=== PATIENT | female | born 1960 | race Caucasian/White ===

== ENCOUNTER 2019-12-21 11:49 | Emergency (ER) | payer OTHER, SELFPAY ==
--- NOTE | ~2019-12-21 | CT_ITS ---
EXAMINATION: CT brain wo con EXAM DATE: 12/21/2019 14:00 INDICATION: Unsteady gait. Sinus infection. TECHNIQUE: Spiral CT of the head was performed without contrast. Axial, coronal and sagittal images were reviewed. The dose-length product (DLP) for this examination was 605.33 mGy-cm. The exposure w as tailored according to patient size, and iterative reconstruction (ASIR) was used as additional dos e reduction technique. There is no prior study for comparison. FINDINGS: There is no acute intraparenchymal hemorrhage. No evidence of intraparenchymal brain mass lesion. No evidence of acute infarction. There is no mass effect or midline shift. The ventricles are normal in size. There are no extra-axial collections. There are no acute calvarial fractures. T he orbits are unremarkable. Soft tissue is unremarkable. Trace bilateral maxillary sinus fluid, mild bilateral ethmoid mucoperiosteal thickening. IMPRESSION: 1. No acute intracranial findings. Reviewed, dictated and finalized at location A. 'S CARPENTER
--- NOTE | ~2019-12-21 | XR_ITS ---
EXAMINATION: XR chest 1V DATE: 12/21/2019 14:02 INDICATION: Numb lips. TECHNIQUE: A single frontal view of the chest was obtained. COMPARISON: None. FINDINGS: The chest demonstrates clear lungs without pneumonia, pleural effusion, or pneumothorax. Th e heart size is normal. There is a moderate-sized hiatal hernia. IMPRESSION: 1. Moderate-sized hiatal hernia. Reviewed, dictated and finalized at location A. WORKER
[2019-12-21 11:59] VITALS: BP 182/98; PULSE 120; RESP 20; TEMP 36.3; O2SAT 99
--- NOTE | 2019-12-21 13:37 | ECG_ITS ---
Measurements Intervals [place] Rate: 81 P: 55 AL: 156 QRS: 62 QRSD: 84 T: 42 QT: 376 QTc: 437 Interpretive Statements SINUS RHYTHM BORDERLINE ST ABNORMALITY- INFERIOR LEADS BASELINE WANDER- II, III, AVF BORDERLINE ECG Electronically Signed On 12-21-2019 15:45:16 COW BUYER by Enoc Reynoso D.O.
[2019-12-21 15:00] VITALS: BP 137/88; PULSE 89; RESP 14; O2SAT 99
[2019-12-21 15:13] VITALS: BP 137/88; PULSE 89; RESP 14; O2SAT 99
--- NOTE | 2019-12-21 15:26 | ED.ANXIETY ---
HPI - Anxiety General Chief Complaint: Anxiety Stated Complaint: Lips numb,feels odd Time Seen by Provider: 12/21/19 15:24 Source: patient Mode of arrival: ambulatory Limitations: no limitations History of Present Illness HPI narrative: The pt is a 59 y/o female who presents to the ED c/o anxiety onset today. Pt states that she has been dealing with lots of stress recently due to family issues, and notes that she had a very upsetting phone call today related to this. She states that during this phone call, she began to notice her lips were tingling and that she felt very jumpy. She also notes that she also has not taken her HTN and hypothyroid medication for the last three days, and states that she feels better after taking her HTN medication in the ER. Pt reports that she has had a sinus infection and has been taking Augmentin. Pt reports cough, nasal congestion, and resolved fever associated with this infection. She denies CP, dizziness, and palpitations. MD complaint: anxiety Symptoms: perioral numbness/tingling and other (feeling jumpy ) Place: home Provoking factors: emotional stress Relieving factors: medication (HTN) Associated symptoms: fever/chills (Resolved, associated with sinus infection) and other (Cough (Associated with sinus infection), Nasal congestion (Associated with sinus infection)) Related Data Allergies Allergy/AdvReac Type Severity Reaction Status Date / Time oak Allergy Unknown Verified 08/11/18 10:31 prochlorperazine Allergy Unknown Verified 08/11/18 10:31 Sulfa (Sulfonamide Allergy Unknown Verified 08/11/18 10:31 Antibiotics) Review of Systems Review of Systems: All systems reviewed & are unremarkable except as noted in HPI and below Constitutional: Constitutional: Reports fever(s) (Resolved, Associated with sinus infection) and Reports other (Feeling jumpy ) ENT: Reports nasal congestion (Associated with sinus infection) Cardiovascular: Cardiovascular: Denies chest pain and Denies palpitations Respiratory: Respiratory: Reports cough (Associated with sinus infection) Neurologic: Denies dizziness and Reports tingling (Around the mouth) Psychiatric: Psychiatric: Reports anxiety PMFSH Past Medical History Medical History (Updated 12/21/19 @ 17:09 by Christopher Clifton MD) Deviated septum Fracture of right lower leg HTN (hypertension) Neck injury Tension headache Thyroid disease Unspecified Surgical History Surgical History (Updated 12/21/19 @ 15:39 by Julián Rodrigues) H/O hand surgery x2 H/O sinus surgery Sinus lift Social History Social History (Updated 12/21/19 @ 15:39 by Julián Rodrigues) Smoking status: Never smoker Gender identity (if verbalized by the patient): Female Comments PCP: Joanna Zuleta PA-C Exam Const: General: cooperative, healthy appearing, comfortable, no acute distress, well developed, alert and awake; No confusion Orientation/consciousness: oriented to person, oriented to place, oriented to time, patient oriented x3 and No confusion Limitations: no limitations Resp: Effort & Inspection: normal respiratory effort, able to speak in complete sentences, no respiratory distress and not tachypneic Auscultation: clear to auscultation bilaterally, no crackles, no rales, no rhonchi and no wheezes Cardio: Rate: regular rate Rhythm: regular rhythm GI: Inspection: normal to inspection GI Palp: No abdominal tenderness, Yes Soft to palpation, No Tenderness to palpation present (GI), No Guarding due to palpation present (GI), No Rigid due to palpation and No Rebound tenderness present Auscultation: normal bowel sounds Skin: General skin exam: normal color, no rashes or lesions noted, elasticity normal and turgor normal Neuro: General: oriented to person, oriented to place, oriented to time, patient oriented x3, tone normal, moves all extremities and no focal motor deficits Speech: No Abnormal speech present Extrem: General: normal to inspection,
[2019-12-21 15:31] LABS: Basophils Percent Auto 0.4 % (0.2-1.2); Eosinophils Percent Auto 0.2 % (0-4.4); Hematocrit 45.4 % (37.0-47.0); Hemoglobin 15.2 g/dL (12.0-15.0); Immature Granulocyte Absolute 0.01 K/mm3 (0.00-0.031); Immature Granulocyte Percent A 0.2 % (0-0.5); Lymphocytes Absolute Auto 3.28 K/mm3 (0.9-3.2); Lymphocytes Percent Auto 64.8 % (18.3-44.2); Mean Corpuscular HGB Conc 33.5 g/dl (32-36); Mean Corpuscular Volume 92.7 fl (80-100); Mean Platelet Volume 8.7 fl (7.4-10.4); Monocytes Absolute Auto 0.4 K/mm3 (0.1-0.6); Monocytes Percent Auto 7.9 % (2.6-8.5); Neutrophils Absolute Auto 1.3 K/mm3 (1.3-6.7); Neutrophils Percent Auto 26.5 % (45.5-73.1); Platelet Count Result 174 k/mm3 (150-375); Red Cell Distribution Width 12.4 % (11.5-14.5); White Blood Count 5.1 K/mm3 (4.5-10.0)
[2019-12-21 15:41] LABS: Prothrombin Time 12.7 Seconds (11.1-14.7)
[2019-12-21 15:43] LABS: Blood Urea Nitrogen 12 mg/dL (7-17); Calcium 8.4 mg/dL (8.4-10.2); Carbon Dioxide 25 mmol/L (22-30); Chloride 103 mmol/L (98-107); Estimated CRCL calculation 63 ml/min; Estimated Glomerular Filt Rate > 60; Glucose 124 mg/dL (65-105); Potassium 3.5 mmol/L (3.4-5.0); Sodium 142 mmol/L (137-145)
[2019-12-21 15:56] LABS: Troponin I < 0.012 ng/mL (0.000-0.034)
[2019-12-21 17:25] VITALS: BP 134/77; PULSE 83; O2SAT 98
== END 2019-12-21 17:27 | disposition home or self-care (01) ==
PROVIDERS: Emergency Medicine; Emergency Provider Emergency Medicine; PCP Physician Assistant
DX: F41.9 Anxiety disorder, unspecified (principal); I10 Essential (primary) hypertension; E07.9 Disorder of thyroid, unspecified; K44.9 Diaphragmatic hernia without obstruction or gangrene; R94.31 Abnormal electrocardiogram [ECG] [EKG]
CPT/HCPCS: 36415; 70450; 71045; 80048; 84484; 85025; 85610; 85730; 93005; 99284

== ENCOUNTER 2021-12-31 22:17 | Emergency (ER) | payer BC, SELFPAY ==
--- NOTE | ~2021-12-31 | XR_ITS ---
XR toe 1st RT min 2V 12/31/2021 22:39 Indication: Right first toe pain Procedure: 3 views right first toe Comparison: No prior studies for comparison. Findings: There is a displaced avulsion fracture dorsal base right first distal phalanx with subluxat ion of the distal phalanx. Moderate soft tissue swelling. There is a small surgical cerclage wire ove rlying the proximal phalanx. Impression: 1: Displaced avulsion fracture dorsal base right first distal phalanx with plantar subluxation. Reviewed, dictated and finalized at location A. [facility] Impression: 1: Displaced avulsion fracture dorsal base right first distal phalanx with plan tar subluxation.
[2021-12-31 22:20] VITALS: BP 165/113; PULSE 106; RESP 20; TEMP 37; O2SAT 99
--- NOTE | 2021-12-31 22:37 | ED.LOWEXIN ---
HPI - Extremity Injury (Lower) General Chief Complaint: Extremity Injury, Lower Stated Complaint: right great toe pain Time Seen by Provider: 12/31/21 22:27 History of Present Illness HPI Narrative: 61-year-old female presents to the emergency room with complaints of right great toe pain. Patient states that she tripped caught her toe in her clothing. Patient states that she felt a pop and then a snap. Looked down at her injury and noticed that the bone in her right great toe was sticking out of the skin. Related Data Allergies Allergy/AdvReac Type Severity Reaction Status Date / Time oak Allergy Unknown Verified 08/11/18 10:31 prochlorperazine Allergy Unknown Verified 08/11/18 10:31 Sulfa (Sulfonamide Allergy Unknown Verified 08/11/18 10:31 Antibiotics) Review of Systems Review of Systems: CONSTITUTIONAL: Denies fever, chills, or sweats. EYES: Denies visual changes, redness, or discharge. ENT: Denies rhinorrhea, congestion, sore throat, or otalgia. CARDIOVASCULAR: Denies chest pain, palpitations, or edema. RESPIRATORY: Denies cough or dyspnea. GASTROINTESTINAL: Denies abdominal pain, nausea, vomiting, or diarrhea. GENITOURINARY: Denies dysuria or hematuria. SKIN: Denies rash or itching. MUSCULOSKELETAL: Denies back pain, joint pain, or myalgia. Right great toe pain NEUROLOGIC: Denies headache, numbness, dizziness, or weakness. PSYCHIATRIC: Denies anxiety or depression. [facility] Past Medical History Medical History Deviated septum Fracture of right lower leg HTN (hypertension) Neck injury Tension headache Thyroid disease Unspecified Surgical History Surgical History H/O hand surgery x2 H/O sinus surgery Sinus lift Social History Social History Smoking status: Never smoker Gender identity (if verbalized by the patient): Female Exam Narrative: GENERAL: Well-appearing, well-nourished, and in no acute distress. HEAD: Normocephalic, atraumatic. EYES: PERRLA and EOMI. ENT: Nares clear, no rhinorrhea or epistaxis. Mucous membranes moist. Oropharynx without tonsillar hypertrophy exudate or other lesions. Bilateral TMs [place] nonbulging NECK: Supple. No adenopathy or masses. No carotid bruits or JVD CHEST: Clear to auscultation. No respiratory distress. No wheezes rales or rhonchi HEART: Regular rate and rhythm. No murmur heard. Normal peripheral pulses. ABDOMEN: Soft, nontender, nondistended, normal active bowel sounds. EXTREMITIES: right great toe: Open fracture involving the proximal phalanx; neurovascular distally intact; cap refill less than 2 seconds SKIN: Warm, dry, no rash. NEURO: No focal deficits. Alert and oriented x3. PSYCH: Normal mood and affect. Course Course Emergency Course: 2349: Report given to Dr. Camacho at [facility]. She is excepting physician. Vital Signs Vital signs: Vital Signs Temperature 37.0 C 12/31/21 22:20 Pulse Rate 106 H 12/31/21 22:20 Respiratory Rate 20 12/31/21 22:20 Blood Pressure 165/113 H 12/31/21 22:20 Pulse Oximetry 99 12/31/21 22:20 Temperature 37.0 C 12/31/21 22:20 Pulse Rate 106 H 12/31/21 22:20 Respiratory Rate 20 12/31/21 22:20 Blood Pressure 165/113 H 12/31/21 22:20 Pulse Oximetry 99 12/31/21 22:20 MDM - Extremity Injury (Lower) MDM Narrative Medical decision making narrative: 61-year-old female presenting with an injury to her right great toe. Imaging shows a displaced avulsion fracture to the dorsal base of the right first distal phalanx plantar subluxation. Ancef given. 4 mg of Zofran 4 mg of morphine for pain. Toe was dressed with a wet-to-dry gauze. Dr. Camacho [facility] will be the accepting physician. Transfer by ALS was initiated. Imaging Data Radiologist's impression: Impressions Toe X-Ray 12/31/21 22:55 Impression: 1: Displaced avulsion fr
[2021-12-31] MEDS: SODIUM CHLORIDE 0.9% IV 1,000 ML 150 ML IV CONT (22:42)
[2021-12-31] MEDS: ONDANSETRON INJ 4 MG/2 ML VIAL IV PUSH (22:45)
[2021-12-31 22:46] LABS: Basophils Absolute Auto 0.1 K/mm3 (0.0-0.1); Basophils Percent Auto 0.4 % (0.2-1.2); Eosinophils Absolute Auto 0.2 K/mm3 (0-0.3); Eosinophils Percent Auto 0.7 % (0-4.4); Hematocrit 45.1 % (37.0-47.0); Hemoglobin 15.2 g/dL (12.0-15.0); Immature Granulocyte Absolute 0.03 K/mm3 (0.00-0.031); Immature Granulocyte Percent A 0.1 % (0-0.5); Lymphocytes Absolute Auto 13.63 K/mm3 (0.9-3.2); Lymphocytes Percent Auto 48.7 % (18.3-44.2); Mean Corpuscular HGB Conc 33.7 g/dl (32-36); Mean Corpuscular Hemoglobin 31.5 pg (26-34); Mean Corpuscular Volume 93.4 fl (80-100); Mean Platelet Volume 8.6 fl (7.4-10.4); Monocytes Absolute Auto 10.9 K/mm3 (0.1-0.6); Monocytes Percent Auto 39.1 % (2.6-8.5); Neutrophils Absolute Auto 3.1 K/mm3 (1.3-6.7); Platelet Count Result 216 k/mm3 (150-375); Red Blood Count 4.83 M/mm3 (4.2-5.4); Red Cell Distribution Width 13.2 % (11.5-14.5)
[2021-12-31] MEDS: MORPHINE SULFATE (*CRX) 4 MG/ML INJ IV PUSH (22:48)
[2021-12-31] MEDS: ceFAZolin SODIUM 1 GM VIAL IV PUSH (22:49)
[2021-12-31] MEDS: TETANUS,DIPHTHERIA,AC PERTUSSIS ADULT (0.5 ML) BOOSTRIX IM (22:55)
[2021-12-31 22:58] LABS: Alanine Aminotransferase 27 U/L (4-35); Albumin Level 4.9 g/dL (3.5-5.1); Alkaline Phosphatase 95 U/L (38-126); Anion Gap 8 mmol/L (8-16); Aspartate Amino Transferase 42 U/L (14-36); Bilirubin,Total 0.6 mg/dL (0.2-1.3); Blood Urea Nitrogen 12 mg/dL (7-17); Calcium 9.4 mg/dL (8.4-10.2); Carbon Dioxide 26 mmol/L (22-30); Chloride 106 mmol/L (98-107); Estimated CRCL calculation 55 ml/min; Estimated Glomerular Filt Rate > 60; Glucose 108 mg/dL (65-110); Potassium 4.1 mmol/L (3.4-5.0); Sodium 140 mmol/L (137-145)
--- NOTE | 2021-12-31 22:59 | PC.NURSE ---
wet/dry dressing right great toe
[2021-12-31 23:44] VITALS: BP 182/109; PULSE 92; RESP 18; O2SAT 100
[2021-12-31 23:51] LABS: SARS-CoV-2 RNA PCR Negative
--- NOTE | 2022-01-01 00:13 | PC.NURSE ---
report to brigido lee at [facility] ed [id number]
[2022-01-01] MEDS: MORPHINE SULFATE (*CRX) 4 MG/ML INJ IV PUSH (00:49)
[2022-01-01 00:54] VITALS: BP 175/98; PULSE 83; RESP 18; O2SAT 100
[2022-01-01 00:55] VITALS: BP 175/98; PULSE 83; RESP 18; O2SAT 100
== END 2022-01-01 00:59 | disposition short-term general hospital (02) ==
PROVIDERS: Emergency Provider Nurse Practitioner Family; PCP Physician Assistant
DX: S92.421B Displaced fracture of distal phalanx of right great toe, initial encounter for open fracture (principal); Z23 Encounter for immunization; Z20.822 Contact with and (suspected) exposure to COVID-19; I10 Essential (primary) hypertension; E07.9 Disorder of thyroid, unspecified; W01.0XXA Fall on same level from slipping, tripping and stumbling without subsequent striking against object, initial encounter
CPT/HCPCS: 36415; 73660; 80053; 85025; 90471; 90715; 96361; 96374; 96375; 96376; 99285; C9803; J0690; J2270; J2405; J7030; U0003; U0005

== ENCOUNTER → 2023-10-26 11:36 | Outpatient (CLI) | payer OTHER, SELFPAY ==
--- NOTE | ~2023-10-26 | XR_ITS ---
EXAMINATION: XR thoracic spine 2V DATE: 10/26/2023 12:17 INDICATION: Neck and upper back pain. TECHNIQUE: 3 views of thoracic spine were obtained. COMPARISON: None. FINDINGS: There is 7 degrees levocurvature of thoracic spine. Vertebral body heights are normal. Ther e is mildly decreased disc height at multiple levels in mid and lower thoracic spine. There are endpl ate osteophytes at most levels. IMPRESSION: 1. Mild thoracic spondylosis. Reviewed, dictated and finalized at location E. URE BOOKER
--- NOTE | ~2023-10-26 | XR_ITS ---
EXAMINATION: XR_CERV2-3V_CR DATE: 10/26/2023 12:16 INDICATION: Neck and upper back pain. TECHNIQUE: 3 views of cervical spine were obtained. COMPARISON: None. FINDINGS: There is kyphosis of cervical spine. There is 2 mm retrolisthesis of C4 on C5 and C5 on C6. Vertebral body heights are normal. There is moderately decreased disc height at C3-C4, severely decr eased disc height at C4-C5, moderately decreased disc height at C5-C6, and severely decreased disc he ight at C6-C7. There is multilevel uncovertebral joint osteoarthritis, severe on the right at C3-C4 a nd C4-C5 and bilaterally at C6-C7. There is multilevel facet joint osteoarthritis, moderate on the le ft at C3-C4. There is mild central canal stenosis at C3-C4, C4-C5, C5-C6, and C6-C7. No prevertebral soft tissue swelling. IMPRESSION: 1. Severe cervical spondylosis. Reviewed, dictated and finalized at location E. EMS AUDITOR
--- NOTE | ~2023-10-26 | XR_ITS ---
XR lumbar spine 2-3V 10/26/2023 12:17 Indication: Back pain Procedure: 3 views lumbar spine Comparison: No prior studies for comparison. Findings: There is disc narrowing at L2-3 and L3-4. There is grade 1 degenerative spondylolisthesis a t L2-3. There is facet hypertrophy at L4-5 and L5-S1. No fracture or traumatic malalignment. There ar e surgical clips overlying the lumbar spine on the AP view. Sacral foramen are symmetric. Impression: 1: Moderate lumbar spondylosis. Reviewed, dictated and finalized at location B. ORT ADVISOR Impression: 1: Moderate lumbar spondylosis.
== END ==
DX: M47.894 Other spondylosis, thoracic region (principal); M47.892 Other spondylosis, cervical region; M47.896 Other spondylosis, lumbar region
CPT/HCPCS: 72040; 72070; 72100

== ENCOUNTER 2025-06-02 08:59 | Emergency (ER) | payer MEDICARE, SELFPAY ==
--- NOTE | 2025-06-02 | CONSULT_PTH ---
PATIENT: Diane Owens LOC: [facility]#:[id number] AGE/SX: 64/F ROOM: RE06/02/[address]: Martínez Allen MD : 1960 BED: DIS: 06/02/2025 SPEC #: [id number] RECD: 06/02/25 10:09 STATUS: CATA REQ #: [id number] MARYJO: 06/02/25 00:[address]: Martínez Allen DEPT: [facility] Consult RECD BY: Joanna Valentin MLT ENTERED: 06/02/25 10:10 SP TYPE: Consult OT DR: PHYSICIAN NOT ON STAFF Tissues: A - Peripheral Smear Procedures: Hematology Consult
--- NOTE | ~2025-06-02 | CT_ITS ---
EXAMINATION: CT abdomen pelvis wo con DATE: 06/02/2025 10:34 INDICATION: Left flank pain and hematuria TECHNIQUE: Computed tomography (CT) of the abdomen and pelvis was performed without intravenous contr ast. Automated exposure control and iterative reconstruction technique were employed. The dose-length product was 402.80 mGy-cm. COMPARISON: None FINDINGS: Mild dependent atelectasis in bilateral lower lobes. Heart size is normal. Atherosclerotic coronary a rtery calcific location. No pericardial or pleural effusion. Mild to moderate sized sliding type hiat al hernia. 1.8 cm hepatic cyst. Splenomegaly measuring 13.4 cm craniocaudal length. Gallbladder, panc reas and bilateral adrenal glands are normal. Kidneys and ureters are normal with no urolithiasis, hy droureteronephrosis or perinephric/ureteral stranding. Mild sigmoid predominant diverticulosis withou t adjacent from trace stranding to suggest diverticular colitis. Small bowel and appendix are normal. Bladder, uterus and bilateral adnexa are unremarkable. No free intraperitoneal gas or fluid. No path ologically enlarged abdominal or pelvic lymphadenopathy. Small fat-containing left inguinal hernia. M ultiple surgical clips extending craniocaudally along the midline anterior abdominal wall. Mild lumba r and lower thoracic spondylosis. IMPRESSION: 1. No urolithiasis or acute intra-abdominal/pelvic process. 2. Small to moderate-sized sliding-type hiatal hernia. 3. Small fat-containing left inguinal hernia. Reviewed, dictated and finalized at location A.
--- OUTSIDE RECORDS SUMMARY | 2025-06-02 09:02 | XMS_ITS | Referral Summary ---
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 or = 19 years Acceptable: <170 mg/dL Borderline high: 170-199 mg/dL High: >or= 200 mg/dL Ages > or = 20 years Desirable: <200 mg/dL Borderline high: 200-239 mg/dL High: >or= 240 mg/dL Literature References: 1. Expert Panel on Integrated Guidelines for Cardiovascular Health and Risk Reduction in Children and Adolescents. Pediatrics 2011;128:S213 2. NCEP Expert Panel. Circulation 2004;110:227 Current Interpretive Data was last revised on 2018. Triglycerides 110 <=149 mg/dL [facility] Comment: Interpretive Data Ages < or = 9 years Acceptable: <75 mg/dL Borderline high: 75-99 mg/dL High: >or= 100 mg/dL Ages 10 to 20 years Acceptable: <90 mg/dL Borderline high: 90-129 mg/dL High: >or= 130 mg/dL Ages > or = 20 years Desirable: <150 mg/dL Borderline high: 150-199 mg/dL High: 200-499 mg/dL Very high: >or= 499 mg/dL Literature References: 1. Expert Panel on Integrated Guidelines for Cardiovascular Health and Risk Reduction in Children and Adolescents. Pediatrics 2011;128:S213 2. NCEP Expert Panel. Circulation 2004;110:227 Current Interpretive Data was last revised on 2018. HDL 38(L) >=40 mg/dL [facility] Comment: Interpretive Data Ages < or = 19 years Acceptable: >45 mg/dL Borderline low: 40-45 mg/dL Low: <40 mg/dL Ages > or = 20 years Desirable: >or= 60 mg/dL Low: <40 mg/dL Literature References: 1. Expert Panel on Integrated Guidelines for Cardiovascular Health and Risk Reduction in Children and Adolescents. Pediatrics 2011;128:S213 2. NCEP Expert Panel. Circulation 2004;110:227 Current Interpretive Data was last revised on 2018. LDL, calculated 194(H) <=129 mg/dL [facility] Comment: Interpretive Data Ages < or = 19 years Acceptable: <110 mg/dL Borderline high: 110-129 mg/dL High: >or= 130 mg/dL Ages > or = 20 years Optimal: <100 mg/dL Near optimal: 100-129 mg/dL Borderline high: 130-159 mg/dL High: >160 mg/dL Calculated using the Julien LDL-C estimating equation. This equation was implemented on 2024. Prior to this date LDL-C was estimated using the Friedewald equation. Literature References: 1. Expert Panel on Integrated Guidelines for Cardiovascular Health and Risk Reduction in Children and Adolescents. Pediatrics 2011;128:S213 2. NCEP Expert Panel. Circulation 2004;110:227 3. Julien Burgess et al. MARIELA Cardiol. 2019February 28;5(5):540-548. doi: 10.1001/[email or web address] Current Interpretive Data was last revised on 2024. Non-HDL Cholesterol 214 mg/dL [facility] Comment: Interpretive Data Ages < or = 19 years Acceptable: <120 mg/dL Borderline high: 120-144 mg/dL High: >145 mg/dL Ages > or = 20 years When triglycerides are >200 mg/dL, Non-HDL cholesterol is a secondary target of therapy with treatment goals that are 30 mg/dL greater than the LDL cholesterol target. Literature References: 1. Expert Panel on Integrated Guidelines for Cardiovascular Health and Risk Reduction in Children and Adolescents. Pediatrics 2011;128:S213 2. NCEP Expert Panel. Circulation 2004;110:227 Current Interpretive Data was last revised on 2018. Chol/HDL ratio 7 [facility] Blood 03/21/2025 9:57 AM CDT 03/21/2025 3:45 PM CDT us Jesus Henao MD LAB BLOOD ORDERABLES Final R esult [facility] [address] [place] [address] * COLONOSCOPY (12/19/2020 11:09 AM REMOTE SENSING SPECIALIST) Anatomical Region Laterality Modality Other Narrative Procedure Note Valeria Hendricks MD - 12/19/2020 11:09 AM CST [facility] Endoscopy Lab Patient Name: Diane Owens Procedure Date: 12/19/2020 11:09 AM Date of : 1960 Admit Type: Outpatient Age: 60 Gender: Female Attending MD: Valeria Hendricks M.D. Procedure: Colonoscopy Indications: Screening for colorectal malignant neoplasm, Thisis the patient's first colonoscopy, Incidental - Hematochezia Providers: Valeria Hendricks M.D. Referring MD: Joanna Zuleta P.ACarla Medicines: Monitored Anesthesia Care Complications: No immediate complications. Procedure: Pre-Anesthesia Assessment: - Prior to the procedure, a History and Physicalwas performed, and patient medications and allergieswere reviewed. The patient is competent. The risks and benefits of the procedure and the sedation optionsand risks were discussed with the patient. Allquestions were answered and informed consent was obtained. Patient identification and proposed procedure were verified by the physician, the nurse, the anesthesiologist, the paramedic rn and thetechnician in the pre-procedure area in the procedure room inthe endoscopy suite. Mental Status Examination: alertand oriented. Airway Examination: normal oropharyngeal airway and neck mobility. Respiratory Examination: clear to auscultation. CV Examination: normal.After reviewing the risks and benefits, the patient was deemed in satisfactory condition to undergo the procedure. The anesthesia plan was to use monitored anesthesia care (MAC). Immediately prior to administration of medications, the patient was re-assessed for adequacy to receive sedatives. The heart rate, respiratory rate, oxygen saturations, blood pressure, adequacy of pulmonary ventilation,and response to care were monitored throughout the procedure. The physical status of the patient was re-assessed after the procedure. - The risks and benefits of the procedure and the sedation options and risks were discussed with the patient. All questions were answered and informed consent was obtained. The benefits, risks and alternatives of theprocedure and sedation were discussed and informed consentwas obtained. All questions were answered. Please referto the signed informed consent document in the medical record. The scope was passed under direct vision.The Colonoscope was introduced through the anus and advanced to the the terminal ileum, with identification of the appendiceal orifice and IC valve. The colonoscopy was performed without difficulty. The patient tolerated the procedurewell. The quality of the bowel preparation was evaluated using the BBPS ([place] Bowel Preparation Scale)with scores of: Right Colon = 3, Transverse Colon = 3and Left Colon = 3 (entire mucosa seen well with no residual staining, small fragments of stool oropaque liquid). The total BBPS score equals 9. The qualityof the bowel preparation was good. The quality of the bowel preparation was evaluated using the BBPS([place] Bowel Preparation Scale) with scores of: RightColon = 3 (entire mucosa seen well with no residualstaining, small fragments of stool or opaque liquid),Transverse Colon = 3 (entire mucosa seen well with no residual staining, small fragments of stool or opaqueliquid) and Left Colon = 3 (entire mucosa seen well with no residual staining, small fragments of stool oropaque liquid). The total BBPS score equals 8. The qualityof the bowel preparation was good. The bowelpreparation used was polyethylene glycol (PEG) via split dose instruction. Bowel prep was administered using asplit dose. Findings: The perianal exam findings include non-thrombosed externalhemorrhoids. Scattered small and large-mouthed diverticula were found in thesigmoid colon and descending colon. [Bleeding]. A 8 mm polyp was found in the cecum. The polyp was sessile. The polyp was removed with a hot snare. Resection and retrieval were complete.To close a defect after polypectomy, two hemostatic clips weresuccessfully placed. There was no bleeding at the end of the procedure. A 10 mm polyp was found in the sigmoid colon. The polyp was sessile.The polyp was removed with a hot snare. Resection and retrieval were complete. A 2 mm polyp was found in the sigmoid colon. The polyp was sessile.The polyp was removed with a cold biopsy forceps. Resection and retrieval were complete. The exam was otherwise normal throughout the examined colon. The terminal ileum appeared normal. Impression: - Non-thrombosed external hemorrhoids found on perianal exam. - Diverticulosis in the sigmoid colon and in the descending colon. There was no evidence of diverticular bleeding. - One 8 mm polyp in the cecum, removed with a hot snare. Resected and retrieved. Clips were placed. - One 10 mm polyp in the sigmoid colon, removedwith a hot snare. Resected and retrieved. - One 2 mm polyp in the sigmoid colon, removed witha cold biopsy forceps. Resected and retrieved (two sigmoid colon polyps in 1 jar). - The examined portion of the ileum was normal. Recommendation: - Await pathology results. - High fiber diet. - No ibuprofen, naproxen, or other non-steroidal anti-inflammatory drugs for 1 week after polypremoval. - Repeat colonoscopy in 3 years for surveillancebased on pathology results. Signed electronically by Dr. Hendricks Valeria Hendricks M.D. 12/19/2020 12:38:00 PM This report has been signed electronically. Number of Addenda: 0 Note Initiated On: 12/19/2020 11:09 AM Scope Withdrawal Time: 0 hours 18 minutes 27 seconds Estimated Blood Loss: Estimated blood loss: none. us Valeria Hendricks MD ENDOSCOPY PROCEDURES Final Resul t from Last 3 Months or Most Recently Relevant to Health Maintenance Additional Health Concerns Infection Onset Date Last Indicated MDR gram neg/ESBL 05/08/2021 05/08/2021 Insurance Propers [facility] MEDICARE [facility] MEDICARE Advance Directives For more information, please contact: [phone] * Full Code (Latest Code Status on File) Date Activated Date Inactivated Comments 04/27/2021 10:31 AM 04/27/2021 4:10 PM * Full Code Date Activated Date Inactivated Comments 02/19/2021 8:06 AM 02/19/2021 2:08 PM * Full Code Date Activated Date Inactivated Comments 12/19/2020 10:54 AM 12/19/2020 5:41 PM Care Teams Textile Engineer Relationship Specialty Start Date End Date Jesus Henao MD [address] [address] PCP - General Internal Medicine 03/21/25 Henrik Silverio DO [address] [place] [id number] Medical Oncologist/Seo Engineer Hematology and Oncology 12/12/20
--- OUTSIDE RECORDS SUMMARY | 2025-06-02 09:02 | XMS_ITS | Clinical Summary ---
Author Organization [facility] Address [address] [place] [address] Care Team Providers Care Technical Operator Name Role Phone Unavailable Primary Care Provider Unavailabl e Allergies Active Allergy Reactions Criticality Noted Date Comments Cat Dander Other (See Comments) 01/22/2024 Hydrochlorothiazide Rash Low 05/26/2023 Latex Itching Medium 05/19/2020 Niacin Itching,Rash Medium 05/19/2020 Prochlorperazine Anxiety Low 02/02/2011 anxious Sulfa (Sulfonamide Antibiotics) Itching Low 02/2011 Medications estradioL (ESTRACE) 0.01% (0.1 mg/g) vaginal cream APPLY PEAS SIZED (0.25 G) AMOUNT TO THE VAGINAL OPENING NIGHTLY X3 WEEKS, THEN 2-3 TIMES PER WEEK. 05/08/2021 Active levothyroxine 50 mcg tablet Take 50 mcg by mouth daily before breakfast. 10/10/2020 Active losartan (COZAAR) 25 mg tablet Take 2 Tablets by mouth daily. 08/18/2020 Active fluconazole (DIFLUCAN) 150 mg tablet Take 1 Tablet (150 mg) by mouth daily. 3 Tablet 03/12/2024 Active Active Problems Problem Noted Date Diagnosed Date SANDRITA III (cervical intraepithelial neoplasia III) 06/25/2022 Benign essential hypertension 02/24/2022 Anxiety 02/24/2022 Hiatal hernia with gastroesophageal reflux 02/24 Vitamin D deficiency 06/16/2021 Overview (01/22/2024): Last Assessment & Plan: Continue weekly vitamin D supplementation unless repeat testing is above ULN. Feels much better, less fatigued since taking it. Last Assessment & Plan: Continue weekly vitamin D supplementation unless repeat testing is above ULN. Feels much better, less fatigued since taking it. Gastroesophageal reflux disease with esophagitis 02/09/2021 Overview (01/22/2024): Added automatically from request for surgery [id number] Added automatically from request for surgery [id number] Chronic sinusitis 01/29/2021 Overview (01/22/2024): Last Assessment & Plan: Patient has chronic sinusitis Has had scope previously Would like to get second opinion on treatment options Will place referral Last Assessment & Plan: Patient has chronic sinusitis Has had scope previously Would like to get second opinion on treatment options Will place referral Chronic lymphocytic leukemia 01/10/2021 Hyperlipidemia 11/23/2018 Hypothyroidism 11/23/2018 Overview (01/22/2024): Last Assessment & Plan: Condition is currently Well controlled . She is on levothyroxine 50mcg daily. Will continue at this time and check TSH today Last Assessment & Plan: Condition is currently Well controlled . She is on levothyroxine 50mcg daily. Will continue at this time and check TSH today Hearing loss 01/21/2017 Cervical high risk human pap illomavirus (HPV) DNA test positive 10/11/2011 Encounters Date Type Department Care Team Description 05/15/2025 External Device Data [facility]CTION Provider, Abstract 05/15/2025 External Device Data [facility] Provider, Abstract 04/16/2025 External Device Data [facility] Provider, Abstract 03/21/2025 External Device Data [facility] Provider, Abstract 03/20/2025 External Device Data [facility] Provider, Abstract 03/19/2025 External Device Data [facility] Provider, Abstract from Last 3 Months Social History Tobacco Use Types Packs/Day Years Used Date Smoking Tobacco: Never Smokeless Tobacco: Never Tobacco Cessation:Counseling Given: Not Answered Alcohol Use Standard Drinks/Week Comments Yes 0 (1 standard drink = 0.6 oz pur e alcohol) Comments Unknown Sex and Gender Information Value Date Recorded Sex Assigned at Not on file Legal Sex Female 3:40 PM CDT Gender Identity Not on file Sexual Orientation Not on file Last Filed Vital Signs Vital Sign Reading Time Taken Comments Blood Pressure 135/83 02/13/2025 12:27 PM CDT Pulse 89 02/13/2025 12:27 PM CDT Temperature 36.4 C (97.6 F) 02/13/2025 12:27 PM CDT Respiratory Rate 18 02/13/2025 12:27 PM CDT Oxygen Saturation 96% 02/13/2025 12:27 PM CDT Inhaled Oxygen Concentration - - Weight 68 kg (150 lb) 02/13/2025 12:27 PM CDT Height 170.2 cm (5' 7) 02/13/2025 12:27 PM CDT Body Mass Index 23.49 02/13/2025 12:27 PM CDT Plan of Treatment Health Maintenance Due Date Last Done Comments DTAP/TDAP/TD VACCINES (1 - Tdap) 1977 PNEUMOCOCCAL VACCINE 50+ YEA RS (1 of 2 - PCV) 1977 ZOSTER VACCINE (1 of 2) 1977 FIT-DNA Q 3 years 2003 FIT/FOBT Q 1 year 2003 Flex Sig/CT Colonography Q 5 years 2003 OSTEOPOROSIS SCREENING 2023 COVID-19 Vaccine ( - 2023-2 5 season) 2024 10/29/2021, 10/29/2021, 02/08/2021, Additional history exists BREAST CANCER SCREENING 07/28/2024 07/28/20 23, 07/28/2023, 07/28/2023, Additional history exists INFLUENZA VACCINE (#1) 2025 COLORECTAL SCREENING 12/19/2030 12/19/2020, 12/19/2020, 12/19/2020, Additional history exists Colorectal Cancer Screening 12/19/2030 RSV VACCINE (60+ or ) (1 - 1-dose 75+ series) 2033 [facility]
--- OUTSIDE RECORDS SUMMARY | 2025-06-02 09:02 | XMS_ITS | Encounter Summary ---
Author Organization [facility] Address [address] [place] [address] Care Team Providers Care State Comptroller Name Role Phone Unavailable Primary Care Provider Unavailabl e Encounter Details Date Type Department Care Team (Late st Contact Info) Description 10/21/2023 Community Orders [facility] [place] [address] [place] [address] Aayush Rodgers [address] [place] [address] Cervicalgia (Primary Dx); Thoracic spine pain; Chronic bilateral low back pain without sciatica Social History Tobacco Use Types Packs/Day Years Used Date Smoking Tobacco: Never Smokeless Tobacco: Never Alcohol Use Standard Drinks/Week Comments Yes 0 (1 standard drink = 0.6 oz pur e alcohol) Comments Unknown Sex and Gender Information Value Date Recorded Sex Assigned at Not on file Legal Sex Female 3:40 PM CDT Gender Identity Not on file Sexual Orientation Not on file documented as of this encounter Plan of Treatment Not on file documented as of this encounter Visit Diagnoses Diagnosis Cervicalgia- Primary Thoracic spine pain Pain in thoracic spine Chronic bilateral low back pain without sciatica documented in this encounter
--- OUTSIDE RECORDS SUMMARY | 2025-06-02 09:02 | XMS_ITS | Clinical Summary ---
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 Assessment & Plan (12/17/2020 5:11 PM PULMONOLOGIST): -start pantoprazole 40 mg once daily 30 minutes before breakfast -EGD to further evaluate -unlikely to be related to the bloody diarrhea she presented to the emergency room a Screening for colon cancer 12/10/2020 Assessment & Plan (12/17/2020 5:13 PM PULMONOLOGIST): 60-year-old female at apparently average risk for colon cancer was never had a colonoscopy. She reports a negative ColoGuard approximately 2 years ago. -schedule colonoscopy -Suprep Colon cancer screening 12/10/2020 Overview (12/10/2020): Added automatically from request for surgery [id number] Nasal obstruction 05/02/2020 Nasal septal perforation 12/18/2019 [...] (02/09/2021): Added automatically from request for surgery [id number] Lymphocytosis 12/17/2020 03/21/2025 Hematochezia 12/10/2020 03/21/2025 Assessment & Plan (03/16/2021 4:45 PM CDT): This has completely resolved. Likely she had a self-limiting diarrheal illness which exacerbated some internal hemorrhoids causing cosmetic bleeding. She was not ever anemic. -No further follow up. Symptomatic treatment of hemorrhoids with hydrocortisone suppositories. Assessment & Plan (12/17/2020 5:13 PM PULMONOLOGIST): -based on the CT scan in the available lab work is most likely cosmetic bleeding from internal hemorrhoids however we should further evaluate with colonoscopy -no anemia -Suprep -this has resolved at the time of the visit Generalized abdominal pain 12/10/2020 0 03/21/2025 Assessment & Plan (12/17/2020 5:15 PM PULMONOLOGIST): CT 12/07/2020 showed no acute findings in [...] Encounter for Medicare annual wellness exam 01/30/2021 Encounters Date Type Department Care Team Description 05/22/2025 Results Follow-Up [facility] at [address] [phone] Kavita Hogan NP Urine culture Urine, clean voided 05/20/2025 2:15 PM CDT Office Visit [facility] at [address] [phone] Kavita Hogan NP Acute cystitis with hematuria (Primary Dx) 05/20/2025 1:41 AM CDT - 05/20/2025 11:59 PM CDT Hospital Encounter [address] [address] Acute cystitis with hematuria Discharge Disposition: Discharge to home or self care 05/20/2025 Nurse Triage [facility] at [address] [place] [phone] Jesus Henao MD 04/25/2025 Telephone [facility] [address] [place] [address] Gem Abraham CMA 04/21/2025 Results Follow-Up [facility] at [address] [place] [phone] Jesus Henao MD Vitamin D 25 hydroxy, Hemoglobin A1c, Thyroid Function [place], Additional followed-up results: 2 04/12/2025 9:45 AM CDT Office Visit [facility] [address] [place] [address] [address] [place] [phone] Henrik Silverio DO CLL (chronic lymphocytic leukemia) (HCC) (Primary Dx) 04/05/2025 Telephone [facility] [address] [place] [address] [address] [place] [address] Dianne Villatoro NP 04/04/2025 1:00 PM CDT Lab [facility] Outpatient Lab at [address] [phone] 04/04/2025 12:59 PM CDT - 04/04/2025 11:59 PM CDT Hospital Encounter [address] [address] Dysuria Discharge Disposition: Discharge to home or self care 04/01/2025 Orders Only [facility] Primary Care at [address] [phone] Jesus Henao MD Dysuria (Primary Dx) 03/22/2025 Orders Only [facility] Primary Care at [address] [place] [phone] Jesus Henao MD 03/22/2025 Telephone [facility] Primary Care at [address] [place] [phone] Jesus Henao MD Symptom Based Call 03/21/2025 10:04 AM CDT - 03/21/2025 11:59 PM CDT Hospital Encounter [address] [phone] Discharge Disposition: Discharge to home or self care 03/21/2025 8:30 AM CDT Office Visit [facility] Primary Care at [address] [place] [phone] Jesus Henao MD Healthcare maintenance (Primary Dx); Encounter for screening mammogram for malignant neoplasm of breast; Gastroesophageal reflux disease, unspecified whether esophagitis present; CLL (chronic lymphocytic leukemia) (HCC); Hypothyroidism, unspecified type; Vitamin D deficiency; Mixed hyperlipidemia; Benign essential hypertension; Impaired glucose tolerance; Anxiety; Need for hepatitis C screening test; Postmenopausal; Hypercalcemia; Special screening for malignant neoplasms, colon 03/21/2025 Telephone [facility] at [address] [phone] Jesus Henao MD Patient Running Late For Apt 03/18/2025 Telephone [facility] [address] [place] [address] [place] [phone] Aminta Andersen RN from Last 3 Months Immunizations Immunization Administration Dates Next Due Influenza, Unspecified 07/31/2023(Deferr ed: Patient Refused),08/10/2021(Deferred: Patient Refused),12/28/2020(Deferred: Patient Refused) Pfizer SARS-CoV-2 Monovalent Vaccination (12+ Yrs) PURPLE 10/29/2021,02/08/2021,01/17/2021 Td, Unspecified 12/29/2021 Surgical History Surgery Date Site/Laterality Comments DENTAL SURGERY SINUS SURGERY SECTION EYE SURGERY Eye lasix REDUCTION MAMMAPLASTY 10/31/2004 - 10/30/2005 Bilateral Medical History Medical History Date Comments Closed fracture of metacarpal bone Fracture of metacarpal bone - (Added by TW Conv) Hypertension Pseudomonas infection Hyperlipidemia Hypothyroidism PONV (postoperative nausea and vomiting) UTI (urinary tract infection) Family History Medical History Relation Name Comments No Known Problems Brother Hypertension Father Skin cancer Father precancer Throat cancer Maternal Grandmother Hypertension Mother Kidney cancer Paternal Grandfather Colon cancer Neg Hx Relation Name Status Comments Brother Alive Father Alive Maternal Grandmother Mother Alive Paternal Grandfather Social History Tobacco Use Types Packs/Day Years [...] on file Legal Sex Female 6:42 PM PULMONOLOGIST Gender Identity Not on file Sexual Orientation Not on file 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 Not on file Not on fi [employer] [place] Not on file Not on file Not on file Obstetrics History Last Filed Vital Signs Vital Sign Reading [...] Access Special screening for malignant neoplasms, colon Health Maintenance Due Date Last Done Comments Osteoporosis Screening-Bone Density Scan 1960 Hepatitis B Screening 1976 Pneumococcal vaccine 65+ (1 of 2 - PCV) 1977 Zoster Vaccine (1 of 2) 1977 DTaP/Tdap/Td Vaccine (1 - Tdap) 12/30/2021 12/29/2021 Colon Cancer Screening-Colonoscopy 12/19/2023 12/19/2020 Influenza Vaccine (#1) 2025 Breast Cancer Screening-Mammogram 03/05/2026 03/05/2025, 03/05/2025, 07/28/2023, Additional history exists Covid-19 Vaccine ( season) 2026 10/29/2021, 02/08/2021, 01/17/2021 Postponed from 07/01/2024 (Patient declined, but will receive in the future) Depression Screening 03/21/2026 03/21/2025, 03/21/2025, 01/29/2021 Fall Risk Assessment 03/21/2026 03/21/2025, 04/27/20 21 Well Visit 65+ 03/21/2026 03/21/2025, 01/29/2021 Hepatitis C Screening Completed 03/21/2025 Procedures Procedure Name Priority Date/Time Associated Diagnosis [...] (OP Routine) 05/25/2021 COLONOSCOPY 12/19/2020 11:09 AM PULMONOLOGIST from Last 3 Months or Most Recently Relevant to Health Maintenance Results * (ABNORMAL) POCT urinalysis dipstick (05/20/2025 2:36 PM CDT) Color, Urine, POC Yellow Clarity, ur, POC Cloudy(A) Clear Glucose, ur, POC Negative Negative Bilirubin, ur, POC Negative Negative Ketones, ur, POC Negative Negative Specific [place], POC 1.025 1.003 - 1.030 Blood, ur, POC Moderate(A) Negative pH, ur, POC 6.5 5.0 - 8.0 Protein, ur, POC Trace(A) Negative Urobilinogen, urine, POC 0.2 0.2 - 1.0 mg/dL Nitrite, ur, POC Negative Negative Leukocytes, ur, POC Small(A) Negative Lot Number [id number] Urine 05/20/2025 2:36 PM CDT Kavita Hogan NP POINT OF CARE TEST ORDERABLES Final Result * Urine culture Urine, clean voided (05/20/2025 12:00 PM CDT) Report Final Report: Less than 100,000 colonies/mL (clinically insignificant growth based on current clinical standards) Comment:Testing performed by : [facility] [address] [facility], [place]., [address] Organism (CLINICALLY INSIGNIFICANT GROWTH [facility] Urine, clean voided 05/20/2025 12:00 PM CDT 05/21/2025 3:49 AM CDT Narrative [facility] - 05/22/2025 6:54 AM CDT Testing performed by [facility] ([phone]) us Kavita Hogan NP LAB MICROBIOLOGY - GENERAL ORD ERABLES Final Result Performing Organization Address [place] [place] [address] Department of Laboratories [place], [place] [phone] * (ABNORMAL) Urinalysis reflex to microscopic (04/04/2025 12:59 PM CDT) Color, ur Yellow Yellow Clarity, ur Clear Clear [facility] Specific gravity, ur 1.023 1.003 - 1.030 [facility] pH, urine 6.5 [facility] Comment: Interpretive Data U rine pH is affected by diet, medications, systemic acid-base disturbances, and renal tubular function. pH may affect urinary stone formation. For example, urine pH below 6.0 may help reduce the tendency for calcium phosphate stones and pH greater than 6.0 may reduce the tendency for uric acid stone formation. Source: [facility] Current Interpretive Data was last revised on [...] 9 PM CDT 04/04/2025 6:45 PM CDT us Jesus Henao MD LAB URINE ORDERABLES Final R esult [facility] [address] [place] [place] [address] * (ABNORMAL) Urinalysis, microscopic only (04/04/2025 12:59 PM CDT) WBC, ur NONE 0 - 5 /HPF RBC, ur 3-5(A) 0 - 2 /HPF [facility] Mucous, ur Present(A) [facility] Urine 04/04/2025 12:5 9 PM CDT 04/04/2025 6:45 PM CDT Jseus Henao MD LAB URINE ORDERABLES Final R esult Performing Organization Address [place] Co de Phone Number [facility] [address] [place] [place], [place] [phone] * Urine culture Urine, clean voided (04/04/2025 12:59 PM CDT) Report Final Report: Less than 100,000 colonies/mL (clinically insignificant growth based on current clinical standards) Comment:Testing performed by : [facility], [address] [place]., [address] Organism (CLINICALLY INSIGNIFICANT GROWTH [facility] Urine, clean voided 04/04/2025 12:59 PM CDT 04/04/2025 8:28 PM CDT Narrative [facility] - 04/06/2025 8:06 AM CDT Testing performed by [facility] ([phone]) us Jesus Henao MD LAB MICROBIOLOGY - GENERAL O RDERABLES Final Result Performing Organization Address [place] Co de Phone Number [facility] [address] [place] [address] * (ABNORMAL) CBC with auto differential (04/04/2025 [...] 04/05/2025 8:11 AM CDT Performed at: - [facility] [address] [id number] Wood Carving Machine Operator: Mynor Pratt PhD, Phone: [phone] Specimen Comment: Called/faxed to DIANNE VILLATORO NP on 04/05/2025 at 07:48 ET Specimen Comment: for test WBC Henrik Silverio DO LAB BLOOD ORDERABLES Final R esult Performing Organization Address [place] Co de Phone Number [facility] - 01 * Lactate dehydrogenase (LD) (04/04/2025 12:29 PM CDT) Pathologist [facility] Lactate dehydrogenase (LDH) 192 119 - 226 IU/L [facility] - 01 Blood 04/04/2025 12:2 9 PM CDT 04/04/2025 Narrative [facility] - 04/05/2025 2:11 PM CDT Performed at: - [address] [id number] Wood Carving Machine Operator: Mynor Pratt PhD, Phone: [phone] Specimen Comment: Called/faxed to DIANNE VILLATORO NP on 04/05/2025 at 07:48 ET Specimen Comment: for test WBC Henrik Silverio DO LAB BLOOD ORDERABLES Final [facility] Performing Organization Address [place] Co de Phone Number [facility] - 01 * Comprehensive metabolic panel (04/04/2025 12:29 PM CDT) Pathologist [facility] Glucose 98 70 - 99 mg/dL [facility] [...] - 04/05/2025 9:10 AM CDT Performed at: - [address] [id number] Wood Carving Machine Operator: Mynor Pratt PhD, Phone: [phone] Specimen Comment: Called/faxed to DIANNE VILLATORO NP on 04/05/2025 at 07:48 ET Specimen Comment: for test WBC Henrik Silverio DO LAB BLOOD ORDERABLES Final R esult [facility] - 01 * Thyroid Function [place] (03/21/2025 9:57 AM CDT) TSH 1.73 0.30 - 4.20 mcIUnit/mL Blood 03/21/2025 9:57 AM CDT 03/21/2025 3:45 PM CDT us Jesus Henao MD LAB BLOOD ORDERABLES Final R esult Performing Organization Address [facility]/ZIP Co de Phone Number [facility] [address] [place] [address] * Hepatitis C antibody Blood (03/21/2025 9:57 [...] O RDERABLES Final Result Performing Organization Address [place]/ZIP Co de Phone Number [facility] [address] Department [address] [place] [address] * Vitamin D 25 hydroxy (03/21/2025 9:57 AM CDT) Vitamin D 25-OH 44 30 - 80 ng/mL Blood 03/21/2025 9:57 AM CDT 03/21/2025 3:45 PM CDT us Jesus Henao MD LAB BLOOD ORDERABLES Final R esult Performing Organization Address [place] de Phone Number [facility] [address] [place] [address] * (ABNORMAL) Hemoglobin A1c (03/21/2025 9:57 AM CDT) Hgb A1C 6.3(H) 4.0 - 5.6 % Estimated Average Glucose 134 mg/dL [facility] Comment: The ADA recommends reporting an estimated Average Glucose (eAG) with all Hemoglobin A1c results using the equation derived from a study of 507 normal and diabetic adults. Minority populations were underrepresented and children were not included. (Diabetes Care 31:1392-4222, 2008). The eAG is not equivalent to a fasting glucose. Blood 03/21/2025 9:57 AM CDT 03/21/2025 4:07 PM CDT us Jesus Henao MD LAB BLOOD ORDERABLES Final R esult Performing Organization Address [place]/ZIP Co de Phone Number [facility] [address] Department [address] [place] [address] * (ABNORMAL) Lipid panel (03/21/2025 9:57 AM [...] revised on 2018. Triglycerides 110 <=149 mg/dL [facility] Comment: Interpretive Data Ages < or = [...] revised on 2018. HDL 38(L) >=40 mg/dL [facility] Comment: Interpretive Data Ages < or = [...] on 2018. LDL, calculated 194(H) <=129 mg/dL [facility] Comment: Interpretive Data Ages < or = [...] NCEP Expert Panel. Circulation 2004;110:227 3. Julien M et al. MARIELA Cardiol. 2020 February 28;5(5):540-548. doi: 10.1001/jamacardio.2020.0013 Current Interpretive Data was last revised on 2024. Non-HDL Cholesterol 214 mg/dL [facility] Comment: Interpretive Data Ages < or = [...] last revised on 2018. Chol/HDL ratio 7 [facility] Blood 03/21/2025 9:57 AM CDT 03/21/2025 3:45 PM CDT us Jesus Henao MD LAB BLOOD ORDERABLES Final R esult [facility] [address] [place] [address] * COLONOSCOPY (12/19/2020 11:09 AM PULMONOLOGIST) Anatomical Region Laterality Modality Other Narrative Procedure Note Valeria Hendricks MD - 12/19/2020 11:09 AM CST [facility] Patient Name: Diane Owens Procedure Date: 12/19/2020 11:09 AM Date of : 1960 Admit Type: Outpatient Age: 60 Gender: Female Attending MD: Valeria Hendricks M.D. Procedure: Colonoscopy Indications: Screening for colorectal malignant neoplasm, Thisis the patient's first colonoscopy, Incidental - Hematochezia Providers: Valeria Hendricks M.D. Referring MD: Steffany Mcclain Medicines: Monitored Anesthesia Care Complications: No immediate [...] the physician, the nurse, the anesthesiologist, the retail greeting card merchandiser and thetechnician in the pre-procedure area in [...] bowel preparation was evaluated using the BBPS ([place] Bowel Preparation Scale)with scores of: Right Colon = 3, Transverse Colon = 3and Left Colon = 3 (entire mucosa seen well with no residual staining, small fragments of stool oropaque liquid). The total BBPS score equals 9. The qualityof the bowel preparation was good. The quality of the bowel preparation was evaluated using the BBPS([place] Bowel Preparation Scale) with scores of: RightColon [...] Estimated Blood Loss: Estimated blood loss: none. Valeria Hendricks MD ENDOSCOPY PROCEDURES Final Resul t from Last 3 Months or Most Recently Relevant to Health Maintenance Additional Health Concerns Infection Onset Date Last Indicated MDR gram neg/ESBL 05/08/2021 05/08/2021 Insurance [facility] AETNA MEDICARE AETNA MEDICARE Advance Directives For more information, please contact: [phone] * Full Code (Latest Code Status on File) Date Activated Date Inactivated Comments 04/27/2021 10:31 AM 04/27/2021 4:10 PM * Full Code Date Activated Date Inactivated Comments 02/19/2021 8:06 AM 02/19/2021 2:08 PM * Full Code Date Activated Date Inactivated Comments 12/19/2020 10:54 AM 12/19/2020 5:41 PM Care Teams Office Associate Relationship Specialty Start Date End Date Jesus Henao MD [address] [address] PCP - General Internal Medicine 03/21/25 Henrik Silverio DO [address] [place] [address] Medical Oncologist/Actuary Hematology and Oncology 12/12/20
--- OUTSIDE RECORDS SUMMARY | 2025-06-02 09:02 | XMS_ITS | Encounter Summary ---
Author Organization [facility] Healthcare Address [address] [place] [address] Care Team Providers Care Tank Cleaning Supervisor Name Role Phone Henrik Silverio DO Unavailable [phone] Jesus Henao MD Primary Care Provider [phone] Encounter Details Date Type Department Care Team (Late st Contact Info) Description 04/21/2025 Results Follow-Up [facility] Primary Care at 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 Not on fi [employer] Not on file Not on file Not on file documented as of this encounter Plan of Treatment Scheduled Orders Name Type Priority Associated Diagnoses Orde r Schedule CBC with auto differential Lab Routine CLL (chronic lymphocytic leukemia) (HCC) Expected: 03/24/2026 (Approximate), Expires: 10/21/2026 Comprehensive metabolic panel Lab Routine Mixed hyperlipidemia Expected: 03/24/2026 (Approximate), Expires: 10/21/2026 Lipid panel Lab Routine Mixed hyperlipidemia Expected: 03/24/2026 (Approximate), Expires: 10/21/2026 Thyroid Function [place] Lab Routine Hypothyroidism, unspecified type Expected: 03/24/2026 (Approximate), Expires: 10/21/2026 Hemoglobin A1c Lab Routine Impaired glucose tolerance Expected: 03/24/2026 (Approximate), Expires: 10/21/2026 Vitamin D 25 hydroxy Lab Routine Vitamin D deficiency Expected: 03/24/2026 (Approximate), Expires: 10/21/2026 Scheduled Procedures Name Priority Associated Diagnoses Date/Ti me COLONOSCOPY Open Access Special screening for malignant neoplasms, colon documented as of this encounter Visit Diagnoses Diagnosis Hypothyroidism, unspecified type- Primary Mixed hyperlipidemia Impaired glucose tolerance Impaired glucose tolerance test CLL (chronic lymphocytic leukemia) Chronic lymphoid leukemia, without mention of having achieved remission Vitamin D deficiency documented in this encounter Additional Health Concerns Infection Onset Date Last Indicated Resolved Time MDR gram neg/ESBL 05/08/2021 05/08/2021 documented as of this encounter Care Teams Tank Cleaning Supervisor Relationship Specialty Start Date End Date Jesus Henao MD [address] [address] PCP - General Internal Medicine 03/21/25 Henrik Silverio DO [address] [place] [address] Medical Oncologist/Fleet Maintenance Manager Hematology and Oncology 12/12/20 documented as of this encounter
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
--- OUTSIDE RECORDS SUMMARY | 2025-06-02 09:02 | XMS_ITS | Encounter Summary ---
Author Organization [facility] Address [address] [place] [address] Care Team Providers Care Cold Roll Operator Name Role Phone Ruth Ann Sandra MD Primary Care Provider [phone] Michelle Reddy MD Unavailable [phone] Unknown, Provider Primary Care Provider UnavailJoanna Billingsley Primary Care Pr ovider Unknown, Provider Primary Care Provider UnavailJoanna Billingsley Primary Care Pr ovider None, Physician Primary Care Provider Unavailabl e Encounter Details Date Type Department Care Team (Late st Contact Info) Description 04/06/2016 Therapy Visit EXTERNAL NON-[facility] DEPT Unknown, Provider Social History Tobacco Use Types Packs/Day Years Used Date Smoking Tobacco: Never Alcohol Use Standard Drinks/Week Comments Yes 0 (1 standard drink = 0.6 oz pur e alcohol) Rarely Comments No Sex and Gender Information Value Date Recorded Sex Assigned at Not on file Legal Sex Female 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 Gender Identity Not on file Sexual Orientation Not on file documented as of this encounter Plan of Treatment Upcoming Encounters Date Type Department Care Team (Late st Contact Info) Description 08/05/2025 10:45 AM CDT Appointment [facility] Health Imaging Services [address] [place] [address] Latesha Fairbanks MD [address] [place] [phone] 08/26/2025 11:00 AM CDT Office Visit [facility] - INSPECTOR SUBASSEMBLY [address] [place] [phone] Estrellita Alston MD [address] [place] [address] 03/11/2026 10:45 AM CDT Office Visit [facility] - INSPECTOR SUBASSEMBLY [address] [place] [address] Latesha Fairbanks MD [address] [place] [address] 03/11/2026 12:45 PM CDT Appointment [facility] [address] [place], [place] [phone] documented as of this encounter Visit Diagnoses Not on filedocumented in this encounter Additional Health Concerns Infection Onset Date Last Indicated Resolved Time ESBL GNR Comment:Added from external infection. 05/08/2021 03/22/2023 1:06 PM C DT ESBL Hx 05/08/2021 03/22/2023 documented as of this encounter Care Teams Cold Roll Operator Relationship Specialty Start Date End Date Ruth Ann Sandra MD PCP - General Surgical Oncology 06/27/14 10/03/16 Unknown, Provider [address] [place] [address] PCP - General 10/04/16 12/11/17 Joanna Vargas PA [address] [place] [address] PCP - General Physician Senior Consulting Manager 12/12/17 04/17/18 Unknown, Provider [address] [place] [address] PCP - General 04/18/18 05/28/18 Joanna Vargas PA [address] [place] [phone] PCP - General 05/29/18 03/04/25 None, Physician [facility] [place] [address] PCP - General 03/05/25 [place] [address] [place] [address] Orthopedic Surgery 03/16/16 documented as of this encounter
--- OUTSIDE RECORDS SUMMARY | 2025-06-02 09:02 | XMS_ITS | Encounter Summary ---
Author Organization [facility] Healthcare Address [address] [place] [address] Care Team Providers Care Marine Engineering Teacher Name Role Phone Nusrat Henrik ValCarla DO Unavailable [phone] Jesus Henao MD Primary Care Provider [phone] Encounter Details Date Type Department Care Team (Late st Contact Info) Description 05/22/2025 Results Follow-Up [facility] [place] [address] [place] [address] Kavita Hogan, CATEGORY DIRECTOR [address] [facility] [address] [address] [place] [address] Urine culture Urine, clean voided Social History Tobacco Use Types Packs/Day Years [...] on file Legal Sex 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 Pt verbalized understanding. documented in this encounter Plan of Treatment Scheduled Procedures Name Priority Associated Diagnoses Date/Ti me COLONOSCOPY Open Access Special screening for malignant neoplasms, colon documented as of this encounter Visit Diagnoses Not on filedocumented in this encounter Additional Health Concerns Infection Onset Date Last Indicated Resolved Time MDR gram neg/ESBL 05/08/2021 05/08/2021 documented as of this encounter Care Teams Marine Engineering Teacher Relationship Specialty Start Date End Date Jesus Henao MD [address] [address] PCP - General Internal Medicine 03/21/25 Henrik Silverio DO [address] [place] [id number] Medical Oncologist/Oxyacetylene Burner Hematology and Oncology 12/12/20 documented as of this encounter
--- OUTSIDE RECORDS SUMMARY | 2025-06-02 09:34 | XMS_ITS | Clinical Summary ---
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 Assessment & Plan (12/17/2020 5:11 PM CLICKER OPERATOR): -start pantoprazole 40 mg once daily 30 minutes before breakfast -EGD to further evaluate -unlikely to be related to the bloody diarrhea she presented to the emergency room a Screening for colon cancer 12/10/2020 Assessment & Plan (12/17/2020 5:13 PM CLICKER OPERATOR): 60-year-old female at apparently average risk for colon cancer was never had a colonoscopy. She reports a negative ColoGuard approximately 2 years ago. -schedule colonoscopy -Suprep Colon cancer screening 12/10/2020 Overview (12/10/2020): Added automatically from request for surgery [id number] Nasal obstruction 05/02/2020 Nasal septal perforation 12/18/2019 [...] (02/09/2021): Added automatically from request for surgery [id number] Lymphocytosis 12/17/2020 03/21/2025 Hematochezia 12/10/2020 03/21/2025 Assessment & Plan (03/16/2021 4:45 PM CDT): This has completely resolved. Likely she had a self-limiting diarrheal illness which exacerbated some internal hemorrhoids causing cosmetic bleeding. She was not ever anemic. -No further follow up. Symptomatic treatment of hemorrhoids with hydrocortisone suppositories. Assessment & Plan (12/17/2020 5:13 PM CLICKER OPERATOR): -based on the CT scan in the available lab work is most likely cosmetic bleeding from internal hemorrhoids however we should further evaluate with colonoscopy -no anemia -Suprep -this has resolved at the time of the visit Generalized abdominal pain 12/10/2020 0 03/21/2025 Assessment & Plan (12/17/2020 5:15 PM CLICKER OPERATOR): CT 12/07/2020 showed no acute findings in [...] Department Care Team Description 05/22/2025 Results Follow-Up [facility] at [address] [phone] Kavita Hogan NP Urine culture Urine, clean voided 05/20/2025 2:15 PM CDT Office Visit [facility] at [address] [phone] Kavita Hogan NP Acute cystitis with hematuria (Primary Dx) 05/20/2025 1:41 AM CDT - 05/20/2025 11:59 PM CDT Hospital Encounter [address] [address] Acute cystitis with hematuria Discharge Disposition: Discharge to home or self care 05/20/2025 Nurse Triage [facility] at [address] [place] [phone] Jesus Henao MD 04/25/2025 Telephone [facility] [address] [place] [address] Gem Abraham CMA 04/21/2025 Results Follow-Up [facility] at [address] [place] [phone] Jesus Henao MD Vitamin D 25 hydroxy, Hemoglobin A1c, Thyroid Function Colbert, Additional followed-up results: 2 04/12/2025 9:45 AM CDT Office Visit [facility] [address] [place] [address] [address] [place] [phone] Henrik Silverio DO CLL (chronic lymphocytic leukemia) (HCC) (Primary Dx) 04/05/2025 Telephone [facility] [address] [place] [address] [address] [place] [address] Dianne Villatoro NP 04/04/2025 1:00 PM CDT Lab [facility] Outpatient Lab at [address] [phone] 04/04/2025 12:59 PM CDT - 04/04/2025 11:59 PM CDT Hospital Encounter [address] [address] Dysuria Discharge Disposition: Discharge to home or self care 04/01/2025 Orders Only [facility] Primary Care at [address] [phone] Jesus Henao MD Dysuria (Primary Dx) 03/22/2025 Orders Only [facility] Primary Care at [address] [place] [phone] Jesus Henao MD 03/22/2025 Telephone [facility] Primary Care at [address] [place] [phone] Jesus Henao MD Symptom Based Call 03/21/2025 10:04 AM CDT - 03/21/2025 11:59 PM CDT Hospital Encounter [address] [phone] Discharge Disposition: Discharge to home or self care 03/21/2025 8:30 AM CDT Office Visit [facility] Primary Care at [address] [place] [phone] Jesus Henao MD Healthcare maintenance (Primary Dx); Encounter for screening mammogram for malignant neoplasm of breast; Gastroesophageal reflux disease, unspecified whether esophagitis present; CLL (chronic lymphocytic leukemia) (HCC); Hypothyroidism, unspecified type; Vitamin D deficiency; Mixed hyperlipidemia; Benign essential hypertension; Impaired glucose tolerance; Anxiety; Need for hepatitis C screening test; Postmenopausal; Hypercalcemia; Special screening for malignant neoplasms, colon 03/21/2025 Telephone [facility] at [address] [phone] Jesus Henao MD Patient Running Late For Apt 03/18/2025 Telephone [facility] [address] [place] [address] [place] [phone] Aminta Andersen RN from Last 3 [...] on file Legal Sex Female 6:42 PM CLICKER OPERATOR Gender Identity Not on file Sexual Orientation Not on file 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 on file Not on file Not [...] (OP Routine) 05/25/2021 COLONOSCOPY 12/19/2020 11:09 AM CLICKER OPERATOR from Last 3 Months or Most Recently Relevant to Health Maintenance Results * (ABNORMAL) POCT urinalysis dipstick (05/20/2025 2:36 PM CDT) Color, Urine, POC Yellow Clarity, ur, POC Cloudy(A) Clear Glucose, ur, POC Negative Negative Bilirubin, ur, POC Negative Negative Ketones, ur, POC Negative Negative Specific [place], POC 1.025 1.003 - 1.030 Blood, ur, POC Moderate(A) Negative pH, ur, POC 6.5 5.0 - 8.0 Protein, ur, POC Trace(A) Negative Urobilinogen, urine, POC 0.2 0.2 - 1.0 mg/dL Nitrite, ur, POC Negative Negative Leukocytes, ur, POC Small(A) Negative Lot Number [id number] Urine 05/20/2025 2:36 PM CDT Kavita Hogan NP POINT OF CARE TEST ORDERABLES Final Result * Urine culture Urine, clean voided (05/20/2025 12:00 PM CDT) Report Final Report: Less than 100,000 colonies/mL (clinically insignificant growth based on current clinical standards) Comment:Testing performed by : [facility], [address], [place]., [address] Organism (CLINICALLY INSIGNIFICANT GROWTH [facility] Urine, clean voided 05/20/2025 12:00 PM CDT 05/21/2025 3:49 AM CDT Narrative [facility] - 05/22/2025 6:54 AM CDT Testing performed by [facility] ([phone]) us Kavita Hogan NP LAB MICROBIOLOGY - GENERAL ORD ERABLES Final Result Performing Organization Address [facility] [place] [address] Department of Laboratories [place], [place] [id number] * (ABNORMAL) Urinalysis reflex to microscopic (04/04/2025 [...] tendency for uric acid stone formation. Source: [facility] Current Interpretive Data was last revised [...] LAB URINE ORDERABLES Final R esult [facility] [address] [place] [place] [address] * (ABNORMAL) Urinalysis, microscopic only (04/04/2025 12:59 PM CDT) WBC, ur NONE 0 - 5 /HPF RBC, ur 3-5(A) 0 - 2 /HPF [facility] Mucous, ur Present(A) [facility] Urine 04/04/2025 12:5 9 PM CDT 04/04/2025 6:45 PM CDT Jesus Henao MD LAB URINE ORDERABLES Final R esult Performing Organization Address [facility] Co de Phone Number [facility] [address] [employer] [place], [place] [phone] * Urine culture Urine, clean voided (04/04/2025 12:59 PM CDT) Report Final Report: Less than 100,000 colonies/mL (clinically insignificant growth based on current clinical standards) Comment:Testing performed by : [facility], [address] [place]., [address] Organism (CLINICALLY INSIGNIFICANT GROWTH [facility] Urine, clean voided 04/04/2025 12:59 PM CDT 04/04/2025 8:28 PM CDT Narrative [facility] - 04/06/2025 8:06 AM CDT Testing performed by [facility] ([phone]) us Jesus Henao MD LAB MICROBIOLOGY - GENERAL O RDERABLES Final Result Performing Organization Address [facility] Co de Phone Number [facility] [address] [place] [address] * (ABNORMAL) CBC with auto [...] 8:11 AM CDT Performed at: - [facility] [address] [id number] Police Commissioner: Mynor Pratt PhD, Phone: [phone] Specimen Comment: Called/faxed to DIANNE VILLATORO NP on 04/05/2025 at 07:48 ET Specimen Comment: for test WBC Henrik Silverio DO LAB BLOOD ORDERABLES Final R esult Performing Organization Address [facility] Co de Phone Number [facility] - 01 * Lactate dehydrogenase (LD) (04/04/2025 12:29 PM CDT) Pathologist [facility] Lactate dehydrogenase (LDH) 192 119 - 226 IU/L [facility] - 01 Blood 04/04/2025 12:2 9 PM CDT 04/04/2025 Narrative [facility] - 04/05/2025 2:11 PM CDT Performed at: - [address] [id number] Police Commissioner: Mynor Pratt PhD, Phone: [phone] Specimen Comment: Called/faxed to DIANNE VILLATORO NP on 04/05/2025 at 07:48 ET Specimen Comment: for test WBC Henrik Silverio DO LAB BLOOD ORDERABLES Final R [facility] Performing Organization Address [facility] Co de Phone Number [facility] - 01 * Comprehensive metabolic panel (04/04/2025 12:29 PM CDT) Pathologist [facility] Glucose 98 70 - 99 mg/dL [facility] [...] 04/05/2025 9:10 AM CDT Performed at: - [address] [id number] Police Commissioner: Mynor Pratt PhD, Phone: [phone] Specimen Comment: Called/faxed to DIANNE VILLATORO NP on 04/05/2025 at 07:48 ET Specimen Comment: for test WBC Henrik Silverio DO LAB BLOOD ORDERABLES Final R esult [facility] - 01 * Thyroid Function Colbert (03/21/2025 9:57 AM CDT) TSH 1.73 0.30 - 4.20 mcIUnit/mL Blood 03/21/2025 9:57 AM CDT 03/21/2025 3:45 PM CDT us Jesus Henao MD LAB BLOOD ORDERABLES Final R esult Performing Organization Address City/[facility]/ZIP Co de Phone Number [facility] [address] [place] [address] * Hepatitis C antibody Blood (03/21/2025 9:57 [...] O RDERABLES Final Result Performing Organization Address [facility]/ZIP Co de Phone Number [facility] [address] Department [place] [address] * Vitamin D 25 hydroxy (03/21/2025 9:57 AM CDT) Vitamin D 25-OH 44 30 - 80 ng/mL Blood 03/21/2025 9:57 AM CDT 03/21/2025 3:45 PM CDT us Jesus Henao MD LAB BLOOD ORDERABLES Final R esult Performing Organization Address [facility] de Phone Number [facility] [address] [place] [place] [address] * (ABNORMAL) Hemoglobin A1c (03/21/2025 9:57 AM CDT) Hgb A1C 6.3(H) 4.0 - 5.6 % Estimated Average Glucose 134 mg/dL [facility] Comment: The ADA recommends reporting an estimated Average Glucose (eAG) with all Hemoglobin A1c results using the equation derived from a study of 507 normal and diabetic adults. Minority populations were underrepresented and children were not included. (Diabetes Care 31:9260-0367, 2008). The eAG is not equivalent to a fasting glucose. Blood 03/21/2025 9:57 AM CDT 03/21/2025 4:07 PM CDT us Jesus Henao MD LAB BLOOD ORDERABLES Final R esult Performing Organization Address [facility]/ZIP Co de Phone Number [facility] [address] Department [place] [address] * (ABNORMAL) Lipid panel (03/21/2025 9:57 AM [...] revised on 2018. Triglycerides 110 <=149 mg/dL [facility] Comment: Interpretive Data Ages < [...] revised on 2018. HDL 38(L) >=40 mg/dL [facility] Comment: Interpretive Data Ages < [...] on 2018. LDL, calculated 194(H) <=129 mg/dL [facility] Comment: Interpretive Data Ages < [...] revised on 2024. Non-HDL Cholesterol 214 mg/dL [facility] Comment: Interpretive Data Ages < [...] last revised on 2018. Chol/HDL ratio 7 [facility] Blood 03/21/2025 9:57 AM CDT 03/21/2025 3:45 PM CDT us Jesus Henao MD LAB BLOOD ORDERABLES Final R esult [facility] [address] Department [place] [address] * COLONOSCOPY (12/19/2020 11:09 AM CLICKER OPERATOR) Anatomical Region Laterality Modality Other Narrative Procedure Note Valeria Hendricks MD - 12/19/2020 11:09 AM CST [facility] Endoscopy Lab Patient Name: Diane Owens [...] the physician, the nurse, the anesthesiologist, the artillery or naval gunfire observer and thetechnician in the pre-procedure area in [...] bowel preparation was evaluated using the BBPS ([place] Bowel Preparation Scale)with scores of: Right Colon = 3, Transverse Colon = 3and Left Colon = 3 (entire mucosa seen well with no residual staining, small fragments of stool oropaque liquid). The total BBPS score equals 9. The qualityof the bowel preparation was good. The quality of the bowel preparation was evaluated using the BBPS([place] Bowel Preparation Scale) with scores of: RightColon [...] Indicated MDR gram neg/ESBL 05/08/2021 05/08/2021 Insurance [facility] AETNA MEDICARE AETNA MEDICARE Advance Directives For more information, please contact: [phone] * Full Code (Latest Code Status on File) Date Activated Date Inactivated Comments 04/27/2021 10:31 AM 04/27/2021 4:10 PM * Full Code Date Activated Date Inactivated Comments 02/19/2021 8:06 AM 02/19/2021 2:08 PM * Full Code Date Activated Date Inactivated Comments 12/19/2020 10:54 AM 12/19/2020 5:41 PM Care Teams Code Enforcement Supervisor Relationship Specialty Start Date End Date Jesus Henao MD [address] [address] PCP - General Internal Medicine 03/21/25 Henrik Silverio DO [address] [place] [id number] Medical Oncologist/Paper Cutter Operator Hematology and Oncology 12/12/20
--- OUTSIDE RECORDS SUMMARY | 2025-06-02 09:34 | XMS_ITS | Referral Summary ---
Author Organization [facility] Address [address] [place] [address] Care Team Providers Care Measuring Machine Operator Name Role Phone Hernik Silverio DO Unavailable Jesus Henao MD Primary Care Provider [phone] Encounters Date Type Department Care Team Description 05/22/2025 Results Follow-Up [facility] Convenient Care at [address] [address] Kavita Hogan NP Urine culture Urine, clean voided 05/20/2025 1:41 AM CDT - 05/20/2025 11:59 PM CDT Hospital Encounter [address] [id number] Acute cystitis with hematuria Discharge Disposition: Discharge to home or self care 05/20/2025 2:15 PM CDT Office Visit [facility] Convenient Care at [address] [address] Kavita Hogan NP Acute cystitis with hematuria (Primary Dx) 05/20/2025 Nurse Triage [facility] Primary Care at [facility] [address], [place] [address] Jesus Henao MD 04/25/[address] [facility] Outside Images [address] [place] [address] Gem Abraham CMA 04/21/2025 Results Follow-Up [facility] Primary Care at [address] [phone] Jesus Henao MD Vitamin D 25 hydroxy, Hemoglobin A1c, Thyroid Function [place], Additional followed-up results: 2 04/12/2025 9:45 AM CDT Office Visit [facility] Oncology [address] [place] [address] [address] [place] [address] Henrik Silverio DO CLL (chronic lymphocytic leukemia) (HCC) (Primary Dx) 04/05/2025 Telephone [facility] Oncology [address] [place] [address] [address] [place] [address] Dianne Mix NP 04/04/2025 12:59 PM CDT - 04/04/2025 11:59 PM CDT Hospital Encounter [address] [address] Dysuria Discharge Disposition: Discharge to home or self care 04/04/2025 1:00 PM CDT Lab [facility] Outpatient Lab at [address] [phone] 04/01/2025 Orders Only [facility] Primary Care at [address] [phone] Jesus Henao MD Dysuria (Primary Dx) 03/22/2025 Orders Only [facility] Primary Care at [address] [address] Jesus Henao MD 03/22/2025 Telephone [facility] Primary Care at [address] [address] Jesus Henao MD Symptom Based Call 03/21/2025 10:04 AM CDT - 03/21/2025 11:59 PM CDT Hospital Encounter [address] [place] [address] Discharge Disposition: Discharge to home or self care 03/21/2025 Telephone [facility] Primary Care at [place] [address] [facility] [address] [place] [address] Jesus Henao MD Patient Running Late For Apt 03/21/2025 8:30 AM CDT Office Visit [facility] Primary Care at [place] [address] [facility] [address], [place] [address] Jesus Henao MD Healthcare maintenance (Primary Dx); Encounter for screening mammogram for malignant neoplasm of breast; Gastroesophageal reflux disease, unspecified whether esophagitis present; CLL (chronic lymphocytic leukemia) (HCC); Hypothyroidism, unspecified type; Vitamin D deficiency; Mixed hyperlipidemia; Benign essential hypertension; Impaired glucose tolerance; Anxiety; Need for hepatitis C screening test; Postmenopausal; Hypercalcemia; Special screening for malignant neoplasms, colon 03/18/2025 Telephone [facility] Oncology [address] [place] [address] [address] [place] [address] Aminta Andersen RN from Last [...] 0.5 tablets (25 mcg total) by mouth naval marine engineer before breakfast Active losartan (COZAAR) 25 mg [...] bedtime. Assessment & Plan (12/17/2020 5:11 PM NET TRAINER): -start pantoprazole 40 mg once daily 30 minutes before breakfast -EGD to further evaluate -unlikely to be related to the bloody diarrhea she presented to the emergency room a Screening for colon cancer 12/10/2020 Assessment & Plan (12/17/2020 5:13 PM NET TRAINER): 60-year-old female at apparently average risk for colon cancer was never had a colonoscopy. She reports a negative ColoGuard approximately 2 years ago. -schedule colonoscopy -Suprep Colon cancer screening 12/10/2020 Overview (12/10/2020): Added automatically from request for surgery [id number] Nasal obstruction 05/02/2020 Nasal septal perforation 12/18/2019 [...] (02/09/2021): Added automatically from request for surgery [id number] Lymphocytosis 12/17/2020 03/21/2025 Hematochezia 12/10/2020 03/21/2025 Assessment & Plan (03/16/2021 4:45 PM CDT): This has completely resolved. Likely she had a self-limiting diarrheal illness which exacerbated some internal hemorrhoids causing cosmetic bleeding. She was not ever anemic. -No further follow up. Symptomatic treatment of hemorrhoids with hydrocortisone suppositories. 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 Not on file Not [...] (OP Routine) 05/25/2021 COLONOSCOPY 12/19/2020 11:09 AM NET TRAINER from Last 3 Months or Most Recently Relevant to Health Maintenance Results * (ABNORMAL) POCT urinalysis dipstick (05/20/2025 2:36 PM CDT) Color, Urine, POC Yellow Clarity, ur, POC Cloudy(A) Clear Glucose, ur, POC Negative Negative Bilirubin, ur, POC Negative Negative Ketones, ur, POC Negative Negative Specific [place], POC 1.025 1.003 - 1.030 Blood, ur, POC Moderate(A) Negative pH, ur, POC 6.5 5.0 - 8.0 Protein, ur, POC Trace(A) Negative Urobilinogen, urine, POC 0.2 0.2 - 1.0 mg/dL Nitrite, ur, POC Negative Negative Leukocytes, ur, POC Small(A) Negative Lot Number [id number] Urine 05/20/2025 2:36 PM CDT Kavita Hogan NP POINT OF CARE TEST ORDERABLES Final Result * Urine culture Urine, clean voided (05/20/2025 12:00 PM CDT) Report Final Report: Less than 100,000 colonies/mL (clinically insignificant growth based on current clinical standards) Comment:Testing performed by : [facility], [address] [facility], [place]., [address] Organism (CLINICALLY INSIGNIFICANT GROWTH CERNER Urine, clean voided 05/20/2025 12:00 PM CDT 05/21/2025 3:49 AM CDT Narrative CERNER - 05/22/2025 6:54 AM CDT Testing performed by [facility] ([phone]) us Kavita Hogan NP LAB MICROBIOLOGY - GENERAL ORD ERABLES Final Result [facility] [address] Department [place] [address] * (ABNORMAL) Urinalysis reflex to [...] for uric acid stone formation. Source: [facility] [employer] Current Interpretive Data was last revised on [...] ORDERABLES Final R esult Performing Organization Address City/[facility]/ZIP Co de Phone Number [place] [address] [place] [address] * (ABNORMAL) Urinalysis, microscopic only (04/04/2025 12:59 PM CDT) WBC, ur NONE 0 - 5 /HPF RBC, ur 3-5(A) 0 - 2 /HPF [facility] Mucous, ur Present(A) [facility] Urine 04/04/2025 12:5 9 PM CDT 04/04/2025 6:45 PM CDT Jesus Henao MD LAB URINE ORDERABLES Final R esult Performing Organization Address [facility] Co de Phone Number [facility] [address] Department [place] [address] * Urine culture Urine, clean voided (04/04/2025 12:59 PM CDT) Report Final Report: Less than 100,000 colonies/mL (clinically insignificant growth based on current clinical standards) Comment:Testing performed by : [facility], [address] [facility] [place]., [address] Organism (CLINICALLY INSIGNIFICANT GROWTH [facility] Urine, clean voided 04/04/2025 12:59 PM CDT 04/04/2025 8:28 PM CDT Narrative [facility] - 04/06/2025 8:06 AM CDT Testing performed by [facility] ([phone]) Jesus Henao MD LAB MICROBIOLOGY - GENERAL O RDERABLES Final Result Performing Organization Address City/[facility] Co de Phone Number [facility] [place] [address] Department [place] [address] * (ABNORMAL) CBC with auto differential (04/04/2025 [...] 04/05/2025 8:11 AM CDT Performed at: - [facility] [id number] Recycling Sorter: Mynor Pratt PhD, Phone: [phone] Specimen Comment: Called/faxed to DIANNE MIX NP on 04/05/2025 at 07:48 ET Specimen Comment: for test WBC Henrik Silverio DO LAB BLOOD ORDERABLES Final R esult Performing Organization Address [facility] Co de Phone Number [facility] - * Lactate dehydrogenase (LD) (04/04/2025 12:29 PM CDT) Pathologist [facility] Lactate dehydrogenase (LDH) 192 119 - 226 IU/L [facility] - 01 Blood 04/04/2025 12:2 9 PM CDT 04/04/2025 Narrative [facility] - 04/05/2025 2:11 PM CDT Performed at: [address] [place] [id number] Recycling Sorter: Mynor Pratt PhD, Phone: [phone] Specimen Comment: Called/faxed to DIANNE MIX NP on 04/05/2025 at 07:48 ET Specimen Comment: for test WBC Henrik Silverio DO LAB BLOOD ORDERABLES Final R esult Performing Organization Address [facility] Co de Phone Number [facility] - * Comprehensive metabolic panel (04/04/2025 12:29 PM CDT) Pathologist [facility] Glucose 98 70 - 99 mg/dL [...] - 04/05/2025 9:10 AM CDT Performed at: [address] [place] [id number] Recycling Sorter: Mynor Pratt PhD, Phone: [phone] Specimen Comment: Called/faxed to DIANNE MIX NP on 04/05/2025 at 07:48 ET Specimen Comment: for test WBC us Henrik Silverio DO LAB BLOOD ORDERABLES Final R esult [facility] - 01 * Thyroid Function [place] (03/21/2025 9:57 AM CDT) Pathologist [facility] TSH 1.73 0.30 - 4.20 mcIUnit/mL Blood 03/21/2025 9:57 AM CDT 03/21/2025 3:45 PM CDT us Jesus Henao MD LAB BLOOD ORDERABLES Final R esult [facility] [address] Department of Laboratories [place], [place] [id number] * Hepatitis C antibody Blood (03/21/2025 9:57 [...] O RDERABLES Final Result Performing Organization Address City/[facility]/ZIP Co de Phone Number [facility] [address] [place] [address] * Vitamin D 25 hydroxy (03/21/2025 9:57 AM CDT) Pathologist [facility] Vitamin D 25-OH 44 30 - 80 ng/mL Blood 03/21/2025 9:57 AM CDT 03/21/2025 3:45 PM CDT us Jesus Henao MD LAB BLOOD ORDERABLES Final R esult Performing Organization Address [facility] Co de Phone Number [facility] [address] [place] [place] [address] * (ABNORMAL) Hemoglobin A1c (03/21/2025 9:57 AM CDT) Pathologist [facility] Hgb A1C 6.3(H) 4.0 - 5.6 % Estimated Average Glucose 134 mg/dL [facility] Comment: The ADA recommends reporting an estimated Average Glucose (eAG) with all Hemoglobin A1c results using the equation derived from a study of 507 normal and diabetic adults. Minority populations were underrepresented and children were not included. (Diabetes Care 31:6138-5474, 2008). The eAG is not equivalent to a fasting glucose. Blood 03/21/2025 9:57 AM CDT 03/21/2025 4:07 PM CDT us Jesus Henao MD LAB BLOOD ORDERABLES Final R esult [facility] [address] Department [place] [address] * (ABNORMAL) Lipid panel (03/21/2025 9:57 AM [...] revised on 2018. Triglycerides 110 <=149 mg/dL [facility] Comment: Interpretive Data Ages < or = [...] revised on 2018. HDL 38(L) >=40 mg/dL [facility] Comment: Interpretive Data Ages < or = [...] on 2018. LDL, calculated 194(H) <=129 mg/dL [facility] Comment: Interpretive Data Ages < or = [...] revised on 2024. Non-HDL Cholesterol 214 mg/dL [facility] Comment: Interpretive Data Ages < or = [...] last revised on 2018. Chol/HDL ratio 7 [facility] Blood 03/21/2025 9:57 AM CDT 03/21/2025 3:45 PM CDT us Jesus Henao MD LAB BLOOD ORDERABLES Final R esult [facility] [address] [place] [address] * COLONOSCOPY (12/19/2020 11:09 AM NET TRAINER) Anatomical Region Laterality Modality Other Narrative Procedure Note Valeria Hendricks MD - 12/19/2020 11:09 AM CST [facility] Endoscopy Lab Patient Name: Diane Owens [...] the physician, the nurse, the anesthesiologist, the production lapping machine operator and thetechnician in the pre-procedure area in [...] bowel preparation was evaluated using the BBPS ([place] Bowel Preparation Scale)with scores of: Right Colon = 3, Transverse Colon = 3and Left Colon = 3 (entire mucosa seen well with no residual staining, small fragments of stool oropaque liquid). The total BBPS score equals 9. The qualityof the bowel preparation was good. The quality of the bowel preparation was evaluated using the BBPS([place] Bowel Preparation Scale) with scores of: RightColon [...] Indicated MDR gram neg/ESBL 05/08/2021 05/08/2021 Insurance [employer] [facility] MEDICARE FORMERLY [facility]1983 MEDICARE Advance Directives For more information, please contact: [phone] * Full Code (Latest Code Status on File) Date Activated Date Inactivated Comments 04/27/2021 10:31 AM 04/27/2021 4:10 PM * Full Code Date Activated Date Inactivated Comments 02/19/2021 8:06 AM 02/19/2021 2:08 PM * Full Code Date Activated Date Inactivated Comments 12/19/2020 10:54 AM 12/19/2020 5:41 PM Care Teams Measuring Machine Operator Relationship Specialty Start Date End Date Jesus Henao MD [address] [address] PCP - General Internal Medicine 03/21/25 Henrik Silverio DO [address] [place] [address] Medical Oncologist/Trust Operations Assistant Hematology and Oncology 12/12/20
--- OUTSIDE RECORDS SUMMARY | 2025-06-02 09:34 | XMS_ITS | Clinical Summary ---
Author Organization [facility] Address [address] [place] [address] Care Team Providers Care Almond Huller Name Role Phone Unavailable Primary Care Provider [...] (01/22/2024): Added automatically from request for surgery [id number] Added automatically from request for surgery [id number] Chronic sinusitis 01/29/2021 Overview (01/22/2024): Last Assessment [...] (1 - 1-dose 75+ series) 2033 [facility]
--- OUTSIDE RECORDS SUMMARY | 2025-06-02 09:34 | XMS_ITS | Encounter Summary ---
Author Organization [facility] Address [address] [place] [address] Care Team Providers Care Antenna Engineer Name Role Phone Unavailable Primary Care Provider Unavailabl e Encounter Details Date Type Department Care Team (Late st Contact Info) Description 10/21/[address] [facility] Imaging Services [place] [address] [place] [address] Aayush Rodgers [address] [place] [address] Cervicalgia (Primary Dx); Thoracic spine [...]
--- OUTSIDE RECORDS SUMMARY | 2025-06-02 09:35 | XMS_ITS | Encounter Summary ---
Author Organization [facility] Address [address] [place] [address] Care Team Providers Care Franchise Business Consultant Name Role Phone Henrik Silverio DO Unavailable [phone] Jesus Henao MD Primary Care Provider [phone] Encounter Details Date Type Department Care Team (Late st Contact Info) Description 04/21/2025 Results Follow-Up [facility] Primary Care at [facility] [address] [address] Jesus Henao MD [address] [address] Vitamin D 25 hydroxy, Hemoglobin A1c, Thyroid Function [place], Additional followed-up results: 2 Social History Tobacco [...] on file Legal Sex Female 6:[address]PER[address] Gender Identity Not on file Sexual Orientation Not on file 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
--- OUTSIDE RECORDS SUMMARY | 2025-06-02 09:35 | XMS_ITS | Encounter Summary ---
Author Organization [facility] Health Address [address] [facility] [facility] [place] [address] Care Team Providers Care Woodworker Helper Name Role Phone Ruth Ann Sandra MD Primary Care Provider [phone] Michelle Reddy MD Unavailable [phone] Unknown, Provider Primary Care Provider UnavailJoanna Billingsley [...] on file Legal Sex Female 6:13 AM COAT AGENT Gender Identity Not on file Sexual Orientation Not on file documented as of this encounter Plan of Treatment Upcoming Encounters Date Type Department Care Team (Late st Contact Info) Description 08/05/2025 10:45 AM CDT Appointment [facility] Health Imaging Services [address] [facility] [address] [place] [address] Latesha Fairbanks MD [address] [place] [phone] 08/26/2025 11:00 AM CDT Office Visit [facility] - DIESEL TECHNICIAN [address] [place] [phone] Estrellita Alston MD [address] [place] [address] 03/11/2026 10:45 AM CDT Office Visit [facility] - DIESEL TECHNICIAN [address] [place] [address] Latesha Fairbanks MD [address] [place] [address] 03/11/2026 12:45 PM CDT Appointment [facility] [address] [facility] [address] [place], [place] [id number] documented as of this encounter Visit Diagnoses Not on filedocumented in this encounter Additional Health Concerns Infection Onset Date Last Indicated Resolved Time ESBL GNR Comment:Added from external infection. 05/08/2021 03/22/2023 1:06 PM C DT ESBL Hx 05/08/2021 03/22/2023 documented as of this encounter Care Teams Woodworker Helper Relationship Specialty Start Date End Date Ruth Ann Sandra MD PCP - General Surgical Oncology 06/27/14 10/03/16 Unknown, Provider [address] [place] [address] PCP - General 10/04/16 12/11/17 Joanna Vargas PA [address] [place] [address] PCP - General Physician Hoist Operator 12/12/17 04/17/18 Unknown, Provider [address] [place] [address] PCP - General 04/18/18 05/28/18 Joanna Vargas PA [address] [place] [phone] PCP - General 05/29/18 03/04/25 None, Physician [facility] [place] [address] PCP - General 03/05/25 [place] [address] [place] [address] Orthopedic Surgery 03/16/16 documented as of this encounter
--- OUTSIDE RECORDS SUMMARY | 2025-06-02 09:35 | XMS_ITS | Encounter Summary ---
Author Organization [facility] Healthcare Address [address] [place] [address] Care Team Providers Care Professor Of Nursing Name Role Phone Nusrat Henrik ValCarla DO Unavailable [phone] Jesus Henao MD Primary Care Provider [phone] Encounter Details Date Type Department Care Team (Late st Contact Info) Description 05/22/2025 Results Follow-Up [facility] Convenient Care at [place] [address] [place] [address] Kavita Hogan, LASER PRINTING OPERATOR [address] [facility] [address] [place] [address] Urine culture Urine, clean voided Social History [...] on file Legal Sex Female 6:42 PM FARM APPRAISER Gender Identity Not on file Sexual Orientation Not on file 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
--- OUTSIDE RECORDS SUMMARY | 2025-06-02 09:35 | XMS_ITS | Clinical Summary ---
Author Organization [facility] Address [address] [place] [address] Care Team Providers Care Molasses Preparer Name Role Phone Michelle Reddy MD Unavailable [phone] None, Physician Primary Care Provider Unavailabl e Source Comments [facility],non-owned Affiliates and Associated Physician Practices is amultiple site organization consisting of ambulatory clinics and hospital sitesin [place], [place], [place] and [place]. This disclosure is being madepursuant to the Care Everywhere program and may not contain all information available regarding this patient. Last updated 18.[facility] Allergies Active Allergy Reactions Criticality Noted Date [...] (06/25/2022): Added automatically from request for surgery [id number] Chronic sinusitis 01/29/2021 Overview (06/25/2022): Last Assessment [...] - 03/05/2025 11:59 PM CDT Hospital Encounter [facility] [address] [place] [address] Latesha Fairbanks MD Discharge Disposition: Home or Self Care 03/05/2025 10:15 AM CDT Office Visit [facility] - COLLECTIONS ATTORNEY [address] [place] [address] Latesha Fairbanks MD Well woman exam with [...] on file Legal Sex Female 6:13 AM GRID CASTING MACHINE OPERATOR HELPER Gender Identity Not on file Sexual Orientation [...] Info) Description 08/05/2025 10:45 AM CDT Appointment [facility] [address] [place] [id number] Latesha Fairbanks MD [address] [place] [phone] 08/26/2025 11:00 AM CDT Office Visit [facility] - COLLECTIONS ATTORNEY [address] [place] [phone] Estrellita Alston MD [address] [place] [phone] 03/11/2026 10:45 AM CDT Office Visit [facility] - COLLECTIONS ATTORNEY [address] [place] [phone] Latesha Fairbanks MD [address] [place] [phone] 03/11/2026 12:[address] [facility] [address] [place] [address] Health Maintenance Due Date Last Done Comments [...] CDT) Case Report Gynecologic Cytology Report Case: [id number] Authorizing Provider: Latesha Fairbanks MD Collected: 03/05/2025 10:50 AM Ordering Location: [facility] - Received: 03/05/2025 10:50 AM COLLECTIONS ATTORNEY First Screen: Bandar Siddiqui CT(ASCP) Specimen: THINPREP [...] 10:11 AM CDT [facility] Interpretation PUBLIC HEALTH ADMINISTRATOR Negative for intraepithelial lesion or malignancy. 03/08/2025 [...] with an additional manual rescreening by a store keeper and/or pathologist. 03/08/2025 10:11 AM CDT [facility] Embedded Images 10:11 AM CDT [facility] Pathology/Cytolo gy MISCELLANEOUS SAMPLES / Unknown Collection / Unknown 03/05/2025 10:50 AM CDT 03/05/2025 10:50 AM CDT us Latesha Fairbanks MD LAB - PATHOLOGY/CYTOLOGY O RDERABLES Final Result [facility] [address] [place] [address], [facility] [phone] * HPV PANEL (03/05/2025 10:50 AM CDT) High Risk HPV 16 NEGATIVE NEGATIVE 03/06/2025 9:21 PM CDT [facility] High Risk HPV 18 NEGATIVE NEGATIVE 03/06/2025 9:21 PM CDT [facility] High Risk HPV Other NEGATIVE NEGATIVE 03/06/2025 9:21 PM CDT [facility] Pathology/Cytolo gy MISCELLANEOUS SAMPLES / Unknown Collection / Unknown 03/05/2025 10:50 AM CDT 03/06/2025 12:35 PM CDT Narrative [facility] - 03/06/2025 9:21 PM CDT This [...] LAB - MICROBIOLOGY ORDERAB LES Final Result [facility] [address] [place] [address], [facility] [phone] from Last 3 Months Additional Health Concerns Infection Onset Date Last Indicated ESBL Hx 05/08/2021 03/22/2023 Insurance [employer] MEDICARE ADV ANTHEM Care Teams Molasses Preparer Relationship Specialty Start Date End Date None, Physician [address] [place] [address] PCP - General 03/05/25 [place] [id number] [place] [address] Orthopedic Surgery 03/16/16
[2025-06-02 09:38] VITALS: BP 158/84; PULSE 89; RESP 17; TEMP 36.4; O2SAT 97
[2025-06-02 09:46] LABS: Hematocrit 40.5 % (37.0-47.0); Hemoglobin 12.9 g/dL (12.0-15.0); Mean Corpuscular HGB Conc 31.9 g/dl (32-36); Mean Corpuscular Hemoglobin 30.1 pg (26-34); Mean Corpuscular Volume 94.4 fl (80-100); Platelet Count Result 187 k/mm3 (150-375); Red Blood Count 4.29 M/mm3 (4.2-5.4)
[2025-06-02 09:56] LABS: Add Urine Microscopic? YES; Appearance Urine Turbid (Clear); Glucose Urine UA Negative (Negative); Leukocyte Esterase Ur 3+ LEU/UL (Negative); Need Manual Microscopic Reviewed; Nitrate Urine Negative (Negative); Specific Grav Ur 1.021 (1.001-1.035)
[2025-06-02 09:59] LABS: Alanine Aminotransferase 20 U/L (6-35); Albumin Level 4.1 g/dL (3.5-5.1); Alkaline Phosphatase 94 U/L (38-126); Anion Gap 8 mmol/L (4-12); Aspartate Amino Transferase 41 U/L (14-36); Bilirubin,Total 0.6 mg/dL (0.2-1.3); Blood Urea Nitrogen 15 mg/dL (7-17); Calcium 8.9 mg/dL (8.4-10.2); Carbon Dioxide 22 mmol/L (22-30); Chloride 109 mmol/L (98-107); Estimated CRCL calculation 54 ml/min; Estimated Glomerular Filt Rate > 60; Glucose 104 mg/dL (65-110); Potassium 4.7 mmol/L (3.4-5.0); Sodium 139 mmol/L (137-145); Total Protein 7.3 g/dL (6.3-8.2)
[2025-06-02 10:00] LABS: INR 1.0; Partial Thromboplastin Time 25.1 Seconds (22.3-36.8); Prothrombin Time 13.6 Seconds (11.1-14.7)
[2025-06-02 10:07] LABS: White Blood Count 91.6 K/mm3 (4.5-10.0)
[2025-06-02 10:08] LABS: Band Neutrophils Percent 96 % (0-6); Neutrophils Absolute Manual 91.60 K/mm3 (1.3-6.7); Neutrophils Percent Manual 4 % (46-73); Schistocytes None Seen; Smudge Cells PRESENT; Total Cells Counted 100
--- NOTE | 2025-06-02 10:36 | ED_ITS ---
HPI - General Adult General Chief complaint: Urogenital-Female Stated complaint: kidney stone VS UTI Time Seen by Provider: 06/02/25 09:21 History of Present Illness HPI narrative: 64-year-old female presents to the emergency department for evaluation for complaint of left flank pain that she has PACs is a kidney stone. Patient does have prior history of ureteral calculi, patient was able to pass his previous stone without issue. Patient states she began developing left flank pain approximately 3 days ago. Patient describes left flank pain and left lower quadrant pain. Patient is also having some pain with urination as well. Patient denies any associated nausea vomiting or diarrhea. Related Data Allergies Allergy/AdvReac Type Severity Reaction Status Date / Time oak Allergy Unknown Unknown Verified 06/02/25 09:43 prochlorperazine Allergy Unknown Unknown Verified 06/02/25 09:43 Sulfa (Sulfonamide Allergy Unknown Unknown Verified 06/02/25 09:43 Antibiotics) Review of Systems 2 Review of Systems: All systems reviewed & are unremarkable except as noted in HPI and below PMFSH Past Medical History Medical History Deviated septum Fracture of right lower leg HTN (hypertension) Neck injury Tension headache Thyroid disease Unspecified Surgical History Surgical History H/O hand surgery x2 H/O sinus surgery Sinus lift Social History Social History Smoking status: Never smoker Gender identity (if verbalized by the patient): Female Exam 2 Narrative: APPEARANCE: Tearful affect HEAD: normocephalic, atraumatic. EYES: PERRLA/EOMI, conjunctivae clear. NOSE: Normal no drainage EARS:TMS clear with good light reflex. THROAT: Pharynx clear, no exudate. NECK: Supple. No adenopathy, no masses. RESPIRATORY: Airway patent, respirations nonlabored. Clear to auscultation bilaterally, no rales, rhonchi, wheezing. CARDIOVASCULAR: Regular rate and rhythm without murmurs rubs or gallops. ABDOMINAL: Mild left lower quadrant tenderness to palpation no left CVA tenderness to palpation MUSCULOSKELETAL: Moves all extremities. Strength/ROM intact, No edema, No calf tenderness. NEURO: Alert. Cranial nerves II through XII intact. Good gait. Good coordination SKIN: Warm, dry. Normal Color Course Vital Signs Vital signs: Vital Signs Temperature 97.5 F L 06/02/25 09:38 Pulse Rate 89 06/02/25 09:38 Respiratory Rate 17 06/02/25 09:38 Blood Pressure 158/84 H 06/02/25 09:38 Pulse Oximetry 97 06/02/25 09:38 Oxygen Delivery Room Air 06/02/25 09:38 Temperature 97.8 F 06/02/25 13:04 Pulse Rate 78 06/02/25 13:04 Respiratory Rate 15 06/02/25 13:04 Blood Pressure 125/77 06/02/25 13:04 Pulse Oximetry 97 06/02/25 13:04 Oxygen Delivery Room Air 06/02/25 09:38 Medical Decision Making MDM Narrative Medical decision making narrative: 64-year-old female history of CLL presents to the emergency department for evaluation for frequent urinary tract infections. Patient states her white blood cell count is usually greater than 60,000. White blood cell count today is 91,000. Patient's hemoglobin is 12.9. INR is 1.0. No acute abnormalities on the patient's CMP. UA was significant for urinary tract infection. She did have leukocyte esterase positive your with high red blood cells and greater than 100 white blood cells with the +[address] abdomen pelvis was ordered to evaluate for ureteral calculi due to her history of. No urolithiasis was identified. Patient does feel improved with treatment. Patient was treated with 1 g of IV Rocephin in the emergency department. Patient will be discharged home with Keflex. Patient will also be provided Pyridium for urinary symptoms. Due to patient having frequent urinary tract infection she was encouraged of close follow-up with Urology. Patient was also encouraged to follow up with Dr. Silverio her oncologist. Patient was well-appearing at time of discharge. All questions are addressed. Differential Diagnosis Differential Diagnosis: Urinary tract infection, appendicitis, colitis, diverticulitis, CLL Vital Signs Vital Signs: Vital Signs Temperature 97.5 F L 06/02/25 09:38 Pulse Rate 89 06/02/25 09:38 Respiratory Rate 17 06/02/25 09:38 Blood Pressure 158/84 H 06/02/25 09:38 Pulse Oximetry 97 06/02/25 09:38 Oxygen Delivery Room Air 08/03/25 09:38 Temperature 97.8 F 06/02/25 13:04 Pulse Rate 78 06/02/25 13:04 Respiratory Rate 15 06/02/25 13:04 Blood Pressure 125/77 06/02/25 13:04 Pulse Oximetry 97 06/02/25 13:04 Oxygen Delivery Room Air 06/02/25 09:38 Lab Data Lab results reviewed: Yes I reviewed the patient's lab results. 06/02/25 09:37 06/02/25 09:37 Labs: Lab Results 06/02/25 Range/Units 09:37 WBC 91.6 H* (4.5-10.0) K/mm3 RBC 4.29 (4.2-5.4) M/mm3 Hgb 12.9 (12.0-15.0) g/dL Hct 40.5 (37.0-47.0) % MCV 94.4 (80-100) fl MCH 30.1 (26-34) pg MCHC 31.9 L (32-36) g/dl RDW 13.5 (11.5-14.5) % Plt Count 187 (150-375) k/mm3 MPV 8.4 (7.4-10.4) fl Immature Gran % (Auto) Not Reportable Neut % (Auto) Not Reportable Lymph % (Auto) Not Reportable Bryan % (Auto) Not Reportable Eos % (Auto) Not Reportable Baso % (Auto) Not Reportable Lymph # (Auto) Not Reportable Bryan # (Auto) Not Reportable Eos # (Auto) Not Reportable Baso # (Auto) Not Reportable Abs Immat Gran (auto) Not Reportable Absolute Neuts (auto) Not Reportable Absolute Nucleated RBC Not Reportable Total Counted 100 Neutrophils % (Manual) 4 L (46-73) % Band Neutrophils % 96 H (0-6) % Nucleated RBC % Not Reportable Abs Neuts (Manual) 91.60 H (1.3-6.7) K/mm3 Atypical Lymphocytes Present Smudge Cells Present Platelet Estimate Adequate (Adequate) Schistocytes None seen PT 13.6 (11.1-14.7) Seconds INR 1.0 APTT 25.1 (22.3-36.8) Seconds Sodium 139 (137-145) mmol/L Potassium 4.7 (3.4-5.0) mmol/L Chloride 109 H (98-107) mmol/L Carbon Dioxide 22 (22-30) mmol/L Anion Gap 8 (4-12) mmol/L BUN 15 (7-17) mg/dL Creatinine 0.88 (0.7-1.0) mg/dL Estim Creat Clear Calc 54 ml/min Estimated GFR > 60 (59 - ) Glucose 104 (65-110) mg/dL Calcium 8.9 (8.4-10.2) mg/dL Total Bilirubin 0.6 (0.2-1.3) mg/dL AST 41 H (14-36) U/L ALT 20 (6-35) U/L Alkaline Phosphatase 94 (38-126) U/L Total Protein 7.3 (6.3-8.2) g/dL Albumin 4.1 (3.5-5.1) g/dL Urine Color Yellow (Yellow) Urine Appearance Turbid H (Clear) Urine pH 5.5 (5.0-9.0) Ur Specific [place] 1.021 (1.001-1.035) Urine Protein 1+ H (Negative) mg/dL Urine Glucose (UA) Negative (Negative) mg/dL Urine Ketones Negative (Negative) mg/dL Ur Blood (Man) 3+ H (Negative) Urine Nitrate Negative (Negative) Urine Bilirubin Negative (Negative) Urine Urobilinogen 0.2 (<2.0) mg/dL Add Ur Microanalysis Reviewed Leukocyte Esterase Rfl 3+ H (Negative) MALU/UL Urine RBC 11-20 H (0-2) /hpf Urine WBC >100 H (0-3) /hpf Ur Squamous Epith Cells Moderate (Few) /hpf Urine Bacteria 1+ H /hpf Urine Casts 11-20 Imaging Data Radiologist's impression: Impressions Abdomen/Pelvis CT 06/02/25 10:49 IMPRESSION: 1. No urolithiasis or acute intra-abdominal/pelvic process. 2. Small to moderate-sized sliding-type hiatal hernia. 3. Small fat-containing left inguinal hernia. Discharge Plan Discharge Clinical Impression: Elevated WBC count, Urinary tract infection Patient Disposition: Home Condition: Stable Instructions: Antibiotic Form, Urinary Tract Infection in Women (ED), Hematuria (ED) Additional Instructions: Tylenol and ibuprofen for pain control. Pyridium as needed for urinary symptoms. Antibiotic as directed until completed. Have close follow-up with Urology due to your frequent urinary tract infections. Have close follow-up with your oncologist due to your elevated white blood cell count. If you have any worsening symptoms then please call or return to the emergency department. Patient Language: Serbian Prescriptions: New phenazopyridine [Pyridium] 100 mg tablet 100 mg PO TID PRN (Reason: pain) Qty: 6 0RF cephalexin 500 mg capsule 500 mg PO Q8H 7 Days Qty: 21 0RF fluconazole 150 mg tablet 150 mg PO ONCE Qty: 1 0RF Rx Instructions: as a single dose after your antibiotics Follow-up/Referrals: Christiano Adames MD [Physician] - PHYSICIAN NOT ON STAFF,NONSTAFF [Primary Care Provider] - Nusrat,Henrik Mccormack DO [Non-Staff] -
[2025-06-02] MEDS: cefTRIAXone 1 GM in SODIUM CHLORIDE 0.9% IV 50 ML 100 ML IVPB (12:05)
[2025-06-02 12:07] VITALS: BP 136/76; PULSE 77; RESP 16; O2SAT 96
[2025-06-02 13:04] VITALS: BP 125/77; PULSE 78; RESP 15; TEMP 36.6; O2SAT 97
== END 2025-06-02 13:07 | disposition home or self-care (01) ==
PROVIDERS: Emergency Provider Emergency Medicine
DX: N39.0 Urinary tract infection, site not specified (principal); C91.10 Chronic lymphocytic leukemia of B-cell type not having achieved remission; I10 Essential (primary) hypertension; E07.9 Disorder of thyroid, unspecified; K40.90 Unilateral inguinal hernia, without obstruction or gangrene, not specified as recurrent; K44.9 Diaphragmatic hernia without obstruction or gangrene; Z87.442 Personal history of urinary calculi
CPT/HCPCS: 36415; 74176; 80053; 81001; 85025; 85610; 85730; 96365; 99284; J0696